=== PATIENT | male | born 1935 | race Caucasian/White ===

== ENCOUNTER 2016-11-23 12:17 | Day surgery (SDC) | payer MEDICARE ==
--- NOTE | 2016-11-23 08:04 | P.GSHP ---
History of Present Illness H&P Date: 11/23/16 CHIEF COMPLAINT: Symptomatic right inguinal hernia. HISTORY OF PRESENT ILLNESS: Keith Pagan is a 81 year-old male with a complicated history of prior prostate cancer as well as esophageal cancer with resection. He has a history of feeding tube. He has recently been treated for an infection of the blood stream with IV antibiotics. His oncologist is Dr. Lake. He wears a truss for his right inguinal hernia and reports moderate pain. He has noticed increased pain and bulge in the last 3 weeks. He denies any previous inguinal surgery. He now presents for further evaluation and management. Additionally, his obtained clearance from his oncologist to proceed with surgery. PAST MEDICAL HISTORY: Please see list. PAST SURGICAL HISTORY: Please see list. MEDICATIONS: Please see list. ALLERGIES: Please see list. SOCIAL HISTORY: No illicit drug use FAMILY HISTORY: No reports of Crohn disease or ulcerative colitis. REVIEW OF ORGAN SYSTEMS: Additionally reports: CONSTITUTIONAL: No fevers or chills. Currently on antibiotics. HEENT: Denies any trouble with hearing or nosebleeds. Has difficulty swallowing from previous radiation to the neck and surgery. Wears glasses. LYMPHATIC: Had removal of lymph nodes from the neck. ENDOCRINE: Denies any thyroid disorders. Denies any blood sugar glucose intolerance. RESPIRATORY: Denies pneumonia. Denies any troubles with breathing or dyspnea on exertion. CARDIOVASCULAR: Denies any chest pain, palpitations, or recent heart attacks. GASTROINTESTINAL: Denies fatty food intolerance. Denies change in bowel habits and gas bloat. Has a feeding tube. GENITOURINARY: Denies any blood in urine or increased urinary frequency. MUSCULOSKELETAL: Has back pain, stiffness, joint arthritis. NEUROLOGIC: Denies any numbness or tingling along the distal extremities. No seizure disorders or headaches. Has chronic pain. PSYCHIATRIC: Denies any depression or suicidal ideation. HEMATOLOGIC: Denies any abnormal bleeding or bruising. BREASTS: Denies any breast lumps, pain or nipple discharge. PHYSICAL EXAM: VITAL SIGNS: Stable Abdomen: Right inguinal defect of approximately 2 cm reducible inguinal hernia. Soft. Non-tender. Nondistended. Has a feeding tube. GENERAL: Well developed and in no acute distress. Pleasant. HEENT: No sclera icterus. Extraocular movements grossly intact. Moist buccal mucosa. Head is atraumatic, normocephalic. Hears conversational speech. No nasal drainage. NECK: Supple without lymphadenopathy. Has well healed scar along the left neck with radiation changes. CHEST: Non-labored respirations and equal bilateral excursions. CARDIOVASCULAR: Regular rate and rhythm. Palpable 2+ radial pulses. MUSCULOSKELETAL: No clubbing, cyanosis or edema. NEUROLOGIC: No focal or lateralizing signs. PSYCH: Appropriate affect. Alert and oriented to person, place and time. ASSESSMENT: 1. Symptomatic right inguinal hernia. 2. History of esophageal cancer. 3. History of blood born infection. 4. Prior history of prostate cancer. PLAN: 1. He had an evaluation with his oncologist prior to proceeding with surgery. 2. He had completed his chemotherapy several months ago. 3. Laparoscopic right inguinal hernia repair with possible bilateral and open technique was reviewed. 4. Placement of mesh placement was also reviewed. 5. DVT prophylaxis. 6. Antibiotic prophylaxis. Past Medical History Past Medical History: Cancer, Hyperlipidemia Additional Past Medical History / Comment(s): 11/21/16: STATES HIS CANCER IS IN REMISSION. HAD AN INFECTION IN SEPTEMBER AT THE BASE OF WHERE THE ORIGINAL CANCER SURGERY WAS AND WAS TREATED WITH IV ANTIBIOTICS. HAS A PORT. ALSO HAS A GASTROTOMY TUBE. HAS A BARIUM SWALLOW SCHEDULED FOR 11/27/15, HAS BEEN EATING ONLY APPLE SAUCE AND CEREAL. HX: Throat CA diagnosed in 2012. In June 2016 at [facility] with 3 lymph nodes found positive for cancer status post chemotherapy with 5-fluorouracil and carboplatin and 35 sessions of radiation. Prostate cancer status post resection in 2001 followed by radiation treatment in 2003 History of Any Multi-Drug Resistant Organisms: None Reported Past Surgical History: Orthopedic Surgery, Prostate Surgery, Tonsillectomy Additional Past Surgical History / Comment(s): 09/2016 GASTROTOMY FEEDING TUBE. JUNE 2013:Robotic-assisted resection of neck tumor mass in [place], [place] followed by section of 20 lymph nodes. June 2016 at [facility] with 3 lymph nodes, prostatectomy, left knee arthroscopic surgery. LEFT KNEE ARTHO. Past Anesthesia/Blood Transfusion Reactions: No Reported Reaction Past Psychological History: No Psychological Hx Reported Smoking Status: Smoker, current status unknown Past Alcohol Use History: None Reported Additional Past Alcohol Use History / Comment(s): Patient is a lifelong nonsmoker. He denies any medical marijuana, marijuana, street drug or alcohol use. He lives at home with his . 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 Past Drug Use History: None Reported - Past Family History Father Family Medical History: Congestive Heart Failure (CHF) Mother Family Medical History: Cancer Additional Family Medical History / Comment(s): cervical CA Brother(s) Additional Family Medical History / Comment(s): Leukemia Medications and Allergies Home Medications Medication Instructions Recorded Confirmed Type Fluconazole Oral Susp [Diflucan 200 mg PO DAILY PRN 09/29/16 11/21/16 History Oral Susp] HYDROcodone/APAP 7.5-325MG [[place] 1 tab PO Q6H PRN 11/21/16 11/21/16 History 7.5-325] Allergies Allergy/AdvReac Type Severity Reaction Status Date / Time No Known Allergies Allergy Verified 11/21/16 16:14
[~2016-11-23 12:17] MED LIST: ACETAMINOPHEN IV (For NPO) 1,000 MG in EMPTY BAG 1 BAG IVPB ONE; BUPIVACAINE LIPOSOME/PF 1.3% 20 ML, BUPIVACAIN-EPI 0.5%-1:200,000 25 ML, SODIUM CHLORID... MISCELLANE ONE; HEPARIN SODIUM,PORCINE 5,000 UNIT/ML 1 ML VIAL SQ ONE; HYDROmorphone 1 MG/ML 1 ML SYRINGE IVP PRN; LACTATED RINGERS 1,000 ML IV SCH; MIDAZOLAM 2 MG/2 ML VIAL IV PRN; ONDANSETRON 4 MG/2 ML VIAL IVP ONE; ceFAZolin 2 GM in SODIUM CHLORIDE 0.9% 100 ML IVPB ONE
[2016-11-23] MEDS ORDERED: LIDOCAINE 1% 20 ML VIAL (10MG/ML) FOR IV START INTRADERMA ONE (13:44)
[2016-11-23] MEDS ORDERED: SUCCINYLCHOLINE CHLORIDE 100 MG/5 ML SYR IV ONE (16:17)
[2016-11-23] MEDS ORDERED: GLYCOPYRROLATE 0.2 MG/ML 2 ML VIAL ONE (16:17)
[2016-11-23] MEDS ORDERED: ePHEDrine 50 MG/ML 1 ML AMP ONE (16:17)
[2016-11-23] MEDS ORDERED: NEOSTIGMINE 1 MG/ML 10 ML VIAL ONE (16:17)
[2016-11-23] MEDS ORDERED: fentaNYL (PF) 50 MCG/ML 2 ML AMP ONE (16:17)
[2016-11-23] MEDS ORDERED: ROCURONIUM BROMIDE 10 MG/ML 10 ML VIAL IV ONE (16:17)
[2016-11-23] MEDS ORDERED: MIDAZOLAM 2 MG/2 ML VIAL ONE (16:17)
[2016-11-23] MEDS ORDERED: LIDOCAINE 1% INJ 10MG/ML (20 ML MDV) ONE (16:17)
[2016-11-23] MEDS ORDERED: PROPOFOL 10 MG/ML 20 ML VIAL IV ONE (16:17)
[2016-11-23] MEDS ORDERED: PHENYLEPHRINE-0.9% NACL SYG 1 MG/10 ML SYRINGE ONE (16:17)
--- NOTE | 2016-11-23 18:28 | P.PCN ---
Date of Procedure: 11/23/16 Preoperative Diagnosis: Right inguinal hernia, history of prostatectomy Postoperative Diagnosis: Indirect initial right inguinal hernia, Nyhus type III, urethral stricture, history of prostatectomy Procedure(s) Performed: Laparoscopic right inguinal hernia with mesh, placement of 12-Tristanian Lima catheter Anesthesia: ANDREW, local Surgeon: Maryuri Goldberg Estimated Blood Loss (ml): 20 Pathology: other (Right inguinal hernia sac) Condition: stable Disposition: observation Operative Findings: Urethral stricture with history of prostatectomy required placement of 12- Tristanian Lima catheter; large right inguinal hernia 4 cm, initial, indirect without obstruction; confirmed postoperative complete reduction of swelling of the right groin
[2016-11-23] MEDS ORDERED: ONDANSETRON 4 MG/2 ML VIAL IVP PRN (18:29)
[2016-11-23] MEDS ORDERED: LACTATED RINGERS 1,000 ML IV ONE (18:29)
[2016-11-23] MEDS ORDERED: HYDROmorphone 1 MG/ML 1 ML SYRINGE IVP PRN (18:29)
[2016-11-23] MEDS ORDERED: ACETAMINOPHEN IV (For NPO) 1,000 MG in EMPTY BAG 1 BAG IVPB ONE (18:47)
[2016-11-23] MEDS ORDERED: NALOXONE 0.4 MG/ML 1 ML VIAL IV PRN (18:47)
[2016-11-23] MEDS ORDERED: HYDROcodone/APAP 15 ML SOLUTION PO PRN (19:47)
[2016-11-24 01:32] VITALS: BMI 24.4
[2016-11-24] MEDS: ceFAZolin 2 GM in SODIUM CHLORIDE 0.9% 100 ML IVPB SCH ×2 (01:36→09:16)
[2016-11-24] MEDS ORDERED: PANTOPRAZOLE 40 MG/10 ML VIAL IV SCH (09:00)
--- NOTE | 2016-11-24 09:14 | FL ---
EXAMINATION: Cervical and Thoracic Esophagram DATE OF EXAM: 11/24/2016 CLINICAL INDICATION: 81-year-old male with dysphasia, reported history of esophagectomy. 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 COMPARISON: 10/02/2016 Total Fluoroscopy Time: 1.06 minutes Contrast utilized: 50 mL Omnipaque 350. FINDINGS: Omnipaque 350 was utilized given the patient's history of surgery and the patient's reported NPO stat us as well as results from previous modified swallow study. Patient swallows without difficulty but there is deep penetration with coating of the vocal cords and eventual silent aspiration. Anterior plate spondylosis at C4-C5 prominently impressing on the posterior hypopharynx. Moderate tertiary peristaltic contractions are present with a small hiatal hernia but no obstruction to passage of contrast in the esophagus. Multiple surgical clips along the left side of the neck. IMPRESSION: 1. This was performed as a limited single contrast esophagram given the patient's previous NPO status and increased risk for aspiration. 2. There is deep laryngeal penetration with coating of the vocal folds and eventual silent aspiration . The patient reports that he is scheduled for a dynamic swallow study in 3 days. 3. No obstruction to the passage of contrast. 4. Moderate tertiary peristalsis and a small hiatal hernia.
--- NOTE | 2016-11-24 09:23 | P.DS ---
Providers Date of admission: 11/23/2016 Expected date of discharge: 11/24/16 Attending physician: Maryuri Goldberg Primary care physician: Benny Copeland - Discharge Diagnosis(es) (1) Inguinal hernia of right side with obstruction Current Visit: Yes Status: Acute (2) Esophageal cancer Current Visit: Yes Status: Chronic (3) Prostate cancer Current Visit: Yes Status: Chronic (4) H/O prostatectomy Current Visit: Yes Status: Chronic (5) H/O esophagectomy Current Visit: Yes Status: Chronic (6) Urethral stricture Current Visit: Yes Status: Chronic (7) Gastrostomy status Current Visit: Yes Status: Chronic (8) Difficult airway Current Visit: Yes Status: Acute (9) S/P inguinal hernia repair using synthetic patch Current Visit: Yes Status: Acute Hospital Course: The patient comes in with history of multiple comorbidities including prior history of oropharyngeal cancer status post esophageal resection as well as prior history of prostatectomy and present gastrostomy status. Preoperatively, his assessment confirmed difficult airway intubation. Intraoperatively, a Lima catheter could not be initially passed. A smaller catheter Lima was subsequently placed after discussion with the urologist. With his multiple comorbidities including ofelia-operative concerns, he was admitted for overnight observation. With his baseline history of dysphagia, a swallow study was performed. Prior to discharge, he was tolerating his tube feeds. He was able to void. His pain was well-controlled. Pertinent Studies: Barium swallow performed demonstrating no leaks. Procedures: Laparoscopic right inguinal hernia repair with mesh Physician placement of 12-Yakut Lima catheter for urethral stricture. Patient Condition at Discharge: Stable Plan - Discharge Summary New Discharge Prescriptions: HYDROcodone/APAP [[place] Elixir 7.5-325Mg/15Ml] 15 ml PO Q6H PRN #480 solution PRN Reason: Pain Discharge Medication List Fluconazole Oral Susp [Diflucan Oral Susp] 200 mg PO DAILY PRN 09/29/16 [History ] HYDROcodone/APAP [[place] Elixir 7.5-325Mg/15Ml] 15 ml PO Q6H PRN #480 solution [Rx] Follow up Appointment(s)/Referral(s): Maryuri Goldberg MD [STAFF PHYSICIAN] - 11/27/16 3:45 pm Patient Instructions/Handouts: Laparoscopic Herniorrhaphy (DC), Inguinal Hernia (DC) Activity/Diet/Wound Care/Special Instructions: No lifting over 4 pounds in 4 weeks. May shower. No bath tub soaks. Discharge Disposition: HOME SELF-CARE
[2016-11-24 09:30] VITALS: BP 103/66; PULSE 88; RESP 15; TEMP 97.8
--- NOTE | 2016-12-09 22:22 | P.OP ---
Date of Procedure: 11/23/16 Description of Procedure: DATE OF SERVICE: 11/23/2016 SURGEON: JASMIN FITZPATRICK MD [facility] DEPART[facility] END FINDER: NONE. PREOPERATIVE DIAGNOSIS: 1. Symptomatic initial right inguinal hernia. 2. History of oropharyngeal cancer. 3. Status post esophagectomy. 4. Status post lymph node dissection left neck. 5. History of chemo radiation into the left neck. 6. History of open prostatectomy. 7. Previous history of prostate cancer. 8. The right groin swelling. 9. Gastrostomy status. 10. History of dysphagia POSTOPERATIVE DIAGNOSES: 1. Symptomatic initial right inguinal hernia. 2. History of oropharyngeal cancer. 3. Status post esophagectomy. 4. Status post lymph node dissection left neck. 5. History of chemo radiation into the left neck. 6. History of open prostatectomy. 7. Previous history of prostate cancer. 8. The right groin swelling. 9. Gastrostomy status. 10. History of dysphagia. 11. Indirect initial right inguinal hernia, Nyhus type III, 4 cm. 12. Urethral stricture. 13. Difficult intubation. OPERATION: 1. Laparoscopic repair of right inguinal hernia via transabdominal approach with 11.4 [address] mesh. 2. Placement of 12-Beninese Ruvalcaba catheter ANESTHESIA: General with 85 mL Exparel, normal saline, Sensorcaine with epinephrine mixture ESTIMATED BLOOD LOSS: 20 mL. SPECIMENS: Hernia sac. COMPLICATIONS: None. 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 He had required lymph node dissection along the left neck as well as chemo radiation. He has also undergone an open prostatectomy. He reports in the last 3+ weeks that he developed new onset swelling and bulge and pain of the right groin. Clinical exam was consistent with incarcerated right inguinal hernia. He had obtained medical risk assessment and clearance by his oncologist. Benefits and risks including bleeding, infection, injury to the spermatic cord structures, infertility, chronic groin pain were reviewed as well as placement of mesh. Informed consent was obtained. DESCRIPTION: Patient was brought to the operating room, laid in supine position. After general induction, using a GlideScope per anesthesia, a Ruvalcaba catheter was placed after prepping the groin including abdomen in a standard sterile fashion. Ioban draping was also placed to minimize any risk of contamination of skin everardo to the mesh. Please note prior to his procedure attempted placement of Ruvalcaba catheter was unsuccessful as he had a stricture along the base of the urethra. Attempt using a 16 Beninese as well as an 18 Beninese Ruvalcaba was unsuccessful. A Coude catheter was also attempted and also unsuccessful, as urine was found emanating from the urethral opening. Placement of his ruvalcaba catheter was deferred to proceed with the procedure. As he has gastrostomy tube of the left upper abdomen, a 0 degrees 5 mm trocar entry was performed along the right upper abdomen. The abdomen was entered and insufflated to 15 mmHg pressure, using high flow CO2 which he tolerated well. Diagnostic laparoscopy confirmed a dilated stomach. After discussion with anesthesia, his feeding tube was placed to suction and his stomach was decompressed. Of the lower pelvis, a large 4 cm right indirect inguinal hernia was identified. The left side was unremarkable. The bladder was found to be slightly distended. Next, a 5 mm trocar was placed along the right lower abdomen followed by a 10 mm trocar placed along the right upper abdominal wall. Initial attention was brought to reduce the hernia which was found well into the scrotum. Using atraumatic graspers, the inguinal hernia sac was inverted into the peritoneal cavity. Next to provide additional exposure, another 5 mm trocar was placed at the epigastrium for the camera port. The patient was placed in Trendelenburg position with the right side up. Using electro- Bovie cautery, the peritoneum was scored along the edges of the inguinal hernia defect. Care was taken to avoid any injury to the neurovascular structures. Next, the hernia sac was dissected free of the spermatic cord structures using blunt dissection as well as using a Kitner. The hernia sac was released from the spermatic cord structures and passed off for further pathological analysis. The final defect corresponded to 4 cm. Next along the peritoneal edges, Endo Stitch using a 2-0 Surgidac and Lapra-Ty was used to create a pursestring suture hence closing the entire defect. An 11.[address] mesh by Bard 11.4 cm was cut in half and entered into abdominal cavity. The mesh was placed to overlap and secure the closure of the pursestring closure as an onlay. Along the periphery of the mesh, Sorbafix tackers were carefully placed avoiding any injury to neurovascular bundles. Hemostasis was excellent. All pneumoperitoneum and instruments were removed from the abdominal cavity. Next an inguinal block was placed using Exparel mixture was placed. The incisions were reapproximated using 4-0 Monocryl in an interrupted subcuticular fashion. Dermabond was applied to the skin. This completed this portion of the case. Attention was now brought back to placement of Ruvalcaba catheter as he did have a distended bladder. Intraoperative phone call to the urologist production department supervisor, Dr. Gaxiola was performed. Upon discussion with him a 12 Beninese Ruvalcaba catheter was successfully placed by me whereby clear urine was obtained. A Ruvalcaba catheter was placed given his underlying urethral stricture from his previous prostatectomy. The patient was awoken and taken to the postanesthesia care unit in stable condition. Intraoperative findings were discussed at length to the patient's family whereby he was both a difficult intubation as well as had a urethral stricture. For concerns of urinary retention including difficult Ruvalcaba catheter placement, the patient was advised to be observed overnight. FINDINGS: 1. Nyhus type III initial right indirect inguinal hernia 4 cm. 2. With history of prostatectomy, urethral stricture identified with physician services used to place 12 Beninese Ruvalcaba catheter. 3. Large right inguinal hernia 4 cm, initial, indirect without obstruction. 4. Confirmed postoperative complete reduction of swelling of the right groin
== END 2016-11-24 12:03 | disposition home or self-care (01) ==
LOC: OR 12:17 → 3SUR 18:35 → OR 11-24 12:03
PROVIDERS: ATTEND Surgery Plastic and Reconstructive Surgery
DX: K40.90 Unilateral inguinal hernia, without obstruction or gangrene, not specified as recurrent (principal); N35.9 Urethral stricture, unspecified; R47.02 Dysphasia; R19.2 Visible peristalsis; K44.9 Diaphragmatic hernia without obstruction or gangrene; Z85.818 Personal history of malignant neoplasm of other sites of lip, oral cavity, and pharynx; Z85.46 Personal history of malignant neoplasm of prostate; Z90.79 Acquired absence of other genital organ(s); Z90.49 Acquired absence of other specified parts of digestive tract; Z93.1 Gastrostomy status; Z92.21 Personal history of antineoplastic chemotherapy; Z92.3 Personal history of irradiation; E78.5 Hyperlipidemia, unspecified; T88.4XXA Failed or difficult intubation, initial encounter; Z86.19 Personal history of other infectious and parasitic diseases; Z79.891 Long term (current) use of opiate analgesic; Z79.899 Other long term (current) drug therapy
CPT/HCPCS: 88302; 74220; 49505; 51702; C1781 ×2; J2250; J1644; J2710; Q9967; J0690 ×2; J2405; J2001; J3010; J0131; J2370; J0330; J2704

== ENCOUNTER → 2016-11-27 | Outpatient (CLI) | payer MEDICARE ==
--- NOTE | 2016-11-27 12:03 | FL ---
EXAMINATION TYPE: FL barium swallow w video DATE OF EXAM: 11/27/2016 11:58 AM COMPARISON: NONE HISTORY: Post surgery TECHNIQUE: Fluoroscopy. FINDINGS: Fluoroscopic guidance was provided for the procedure performed in conjunction with the [facility] pathology department. Please see complete report forthcoming from the Speech Pathology departmen t. Various consistencies from thin liquid to solids were administered. Aspiration was present with thin liquids. There was penetration with mild aspiration possible with th e nectar thick liquids. Swallowing was worse with chin tuck method. Postsurgical changes are within the neck. The epiglottis is not visualized. Pooling within the vallec anil with mild. IMPRESSION: 1. Aspiration with thin liquids. Some penetration may be present with nectar thick liquids. Additiona l consistencies were normal.
== END | disposition home or self-care (01) ==
LOC: RADFLMAIN 11:06
PROVIDERS: ATTEND Family Medicine
DX: C02.9 Malignant neoplasm of tongue, unspecified (principal); R13.10 Dysphagia, unspecified
CPT/HCPCS: 74230

== ENCOUNTER 2017-04-04 14:43 | Inpatient (IN) | payer MEDICARE ==
--- NOTE | 2017-04-04 15:37 | ED ---
Fever HPI - General Chief Complaint: Fever Stated Complaint: Fever 102.5 Time Seen by Provider: 04/04/17 15:20 Source: patient, family, RN notes reviewed Mode of arrival: ambulatory Limitations: no limitations - History of Present Illness Initial Comments: This is a 81-year-old male with a history of throat cancer status post resection status post chemotherapy and radiation therapy with the last treatment about 7 months ago who presents the onset of complaints of fevers chills this morning he had a temperature of 102.5. This feels somewhat weak he did call his doctor and was referred to the emergency department for evaluation she denies any cough or phlegm production nausea vomiting or diarrhea. He does have residual edema about his left face left over from his surgery he states underneath his jaw he does has a fullness is somewhat firm. He feels like he's had dry mouth he did state his salivary gland was removed and the left side. MD Complaint: fever - Related Data Home Medications Medication Instructions Recorded Confirmed Cholecalciferol [Vitamin D3] 1,000 unit PO DAILY 04/04/17 04/04/17 Multivitamins, Thera [Multivitamin 1 tab PO DAILY 04/04/17 04/04/17 (formulary)] Phenylephrine HCl [Calvin-Synephrine] 1 spray EA NOSTRIL DAILY 04/04/17 04/04/17 Allergies Allergy/AdvReac Type Severity Reaction Status Date / Time No Known Allergies Allergy Verified 04/04/17 15:14 Review of Systems ROS Statement: Those systems with pertinent positive or pertinent negative responses have been documented in the HPI. ROS Other: All systems not noted in ROS Statement are negative. Past Medical History Past Medical History: Cancer, Hyperlipidemia Additional Past Medical History / Comment(s): prostate cancer(had surgery and radiation). throat cancer History of Any Multi-Drug Resistant Organisms: None Reported Past Surgical History: Orthopedic Surgery, Prostate Surgery, Tonsillectomy Additional Past Surgical History / Comment(s): left knee orthoscopic surgery. surgery on throat. 20 lymph nodes removed. chemo and radiation in may 2016 for 7 weeks Past Anesthesia/Blood Transfusion Reactions: No Reported Reaction Past Psychological History: No Psychological Hx Reported Smoking Status: Never smoker Past Alcohol Use History: None Reported Additional Past Alcohol Use History / Comment(s): Patient is a lifelong nonsmoker. He denies any medical marijuana, marijuana, street drug or alcohol use. He lives at home with his . 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 Past Drug Use History: None Reported - Past Family History Father Family Medical History: Congestive Heart Failure (CHF) Mother Family Medical History: Cancer Additional Family Medical History / Comment(s): cervical cancer Brother(s) Additional Family Medical History / Comment(s): Leukemia General Exam - General Exam Comments Initial Comments: This is a well-developed well-nourished awake alert oriented 3 male Limitations: no limitations General appearance: alert, in no apparent distress Head exam: Present: atraumatic, normocephalic Eye exam: Present: normal appearance, PERRL, EOMI ENT exam: Present: mucous membranes dry, other (Evaluation of the submandibular region reveals a fullness describe the patient nontender to palpation also some fullness along the posterior and inferior aspects of the left mandible. No fluctuance no increased local temperature. Is erythema seen around theThe patient's neck and upper chest.) Neck exam: Present: normal inspection. Absent: tenderness, meningismus, lymphadenopathy Respiratory exam: Present: normal lung sounds bilaterally. Absent: respiratory distress, wheezes, rales, rhonchi, stridor Cardiovascular Exam: Present: normal rhythm, tachycardia GI/Abdominal exam: Present: soft, normal bowel sounds. Absent: distended, tenderness, guarding, rebound, rigid Extremities exam: Present: normal inspection, full ROM, normal capillary refill. Absent: tenderness, pedal edema, joint swelling, calf tenderness Back exam: Present: normal inspection Neurological exam: Present: alert, oriented X3, CN II-XII intact Psychiatric exam: Present: normal affect, normal mood Skin exam: Present: warm, dry, intact, normal color. Absent: rash Course Vital Signs 04/04/17 04/04/17 04/04/17 14:47 15:18 16:42 Temperature 103.0 F H 103.0 F H Pulse Rate 106 H 97 99 Respiratory 20 16 18 Rate Blood Pressure 113/68 145/69 131/67 O2 Sat by Pulse 98 97 95 Oximetry 04/04/17 18:17 Temperature 100.1 F H Pulse Rate 95 Respiratory 18 Rate Blood Pressure 94/55 O2 Sat by Pulse 96 Oximetry Medical Decision Making - Medical Decision Making I did discuss findings with patient and with the admitting physician the patient will be admitted for evaluation of fever of unknown origin. - Lab Data Result diagrams: 04/04/17 15:05 04/04/17 15:05 Lab Results 04/04/17 04/04/17 04/04/17 Range/Units 15:05 15:05 15:05 WBC 7.8 (3.8-10.6) k/uL RBC 3.91 L (4.30-5.90) m/uL Hgb 12.9 L (13.0-17.5) gm/dL Hct 37.0 L (39.0-53.0) % MCV 94.6 (80.0-100.0) fL MCH 32.9 (25.0-35.0) pg MCHC 34.8 (31.0-37.0) g/dL RDW 12.8 (11.5-15.5) % Plt Count 185 (150-450) k/uL Neutrophils % 87 % Lymphocytes % 7 % Monocytes % 4 % Eosinophils % 1 % Basophils % 0 % Neutrophils # 6.7 (1.3-7.7) k/uL Lymphocytes # 0.6 L (1.0-4.8) k/uL Monocytes # 0.3 (0-1.0) k/uL Eosinophils # 0.1 (0-0.7) k/uL Basophils # 0.0 (0-0.2) k/uL Sodium 138 (137-145) mmol/L Potassium 4.1 (3.5-5.1) mmol/L Chloride 101 (98-107) mmol/L Carbon Dioxide 26 (22-30) mmol/L Anion Gap 11 mmol/L BUN 21 H (9-20) mg/dL Creatinine 0.73 (0.66-1.25) mg/dL Est GFR (MDRD) Af Amer >60 (>60 ml/min/1.73 sqM) Est GFR (MDRD) Non-Af >60 (>60 ml/min/1.73 sqM) Glucose 108 H (74-99) mg/dL Plasma Lactic Acid Har[place] 1.7 (0.7-2.0) mmol/L Calcium 9.6 (8.4-10.2) mg/dL Magnesium 1.6 (1.6-2.3) mg/dL Total Bilirubin 0.7 (0.2-1.3) mg/dL AST 25 (17-59) U/L ALT 22 (21-72) U/L Alkaline Phosphatase 49 (38-126) U/L Total Protein 8.0 (6.3-8.2) g/dL Albumin 4.5 (3.5-5.0) g/dL Urine Color Urine Appearance (Clear) Urine pH (5.0-8.0) Ur Specific [place] (1.001-1.035) Urine Protein (Negative) Urine Glucose (UA) (Negative) Urine Ketones (Negative) Urine Blood (Negative) Urine Nitrite (Negative) Urine Bilirubin (Negative) Urine Urobilinogen (<2.0) mg/dL Ur Leukocyte Esterase (Negative) Influenza Type A RNA (Not Detectd) Influenza Type B (PCR) (Not Detectd) 04/04/17 04/04/17 Range/Units 16:40 17:03 WBC (3.8-10.6) k/uL RBC (4.30-5.90) m/uL Hgb (13.0-17.5) gm/dL Hct (39.0-53.0) % MCV (80.0-100.0) fL MCH (25.0-35.0) pg MCHC (31.0-37.0) g/dL RDW (11.5-15.5) % Plt Count (150-450) k/uL Neutrophils % % Lymphocytes % % Monocytes % % Eosinophils % % Basophils % % Neutrophils # (1.3-7.7) k/uL Lymphocytes # (1.0-4.8) k/uL Monocytes # (0-1.0) k/uL Eosinophils # (0-0.7) k/uL Basophils # (0-0.2) k/uL Sodium (137-145) mmol/L Potassium (3.5-5.1) mmol/L Chloride (98-107) mmol/L Carbon Dioxide (22-30) mmol/L Anion Gap mmol/L BUN (9-20) mg/dL Creatinine (0.66-1.25) mg/dL Est GFR (MDRD) Af Amer (>60 ml/min/1.73 sqM) Est GFR (MDRD) Non-Af (>60 ml/min/1.73 sqM) Glucose (74-99) mg/dL Plasma Lactic Acid Haroon (0.7-2.0) mmol/L Calcium (8.4-10.2) mg/dL Magnesium (1.6-2.3) mg/dL Total Bilirubin (0.2-1.3) mg/dL AST (17-59) U/L ALT (21-72) U/L Alkaline Phosphatase (38-126) U/L Total Protein (6.3-8.2) g/dL Albumin (3.5-5.0) g/dL Urine Color Yellow Urine Appearance Clear (Clear) Urine pH 8.0 (5.0-8.0) Ur Specific [place] 1.017 (1.001-1.035) Urine Protein Negative (Negative) Urine Glucose (UA) Negative (Negative) Urine Ketones Negative (Negative) Urine Blood Negative (Negative) Urine Nitrite Negative (Negative) Urine Bilirubin Negative (Negative) Urine Urobilinogen <2.0 (<2.0) mg/dL Ur Leukocyte Esterase Negative (Negative) Influenza Type A RNA Not Detected (Not Detectd) Influenza Type B (PCR) Not Detected (Not Detectd) - Radiology Data Radiology results: report reviewed (I did review the imaging and reports no acute findings.), image reviewed Disposition Clinical Impression: Fever of unknown origin (FUO), History of throat cancer Disposition: ADMITTED IP TO THIS HOSP Condition: Stable Referrals: Benny Copeland MD [Primary Care Provider] - 1-2 days
[2017-04-04 15:54] LABS: Basophils % (A) 0 %; CH 32.6; CHCM 34.6; Eosinophils # (A) 0.1 k/uL (0-0.7); Eosinophils % (A) 1 %; HDW 2.48; HGB 12.9 gm/dL (13.0-17.5); Luc # (Auto) 0.09; Luc % (Auto) 1; Lymphocytes # (A) 0.6 k/uL (1.0-4.8); Lymphocytes % (A) 7 %; MCH 32.9 pg (25.0-35.0); MCHC 34.8 g/dL (31.0-37.0); MCV 94.6 fL (80.0-100.0); Mean Platelet Volume 6.7; Monocytes # (A) 0.3 k/uL (0-1.0); Monocytes % (A) 4 %; Neutrophils # (A) 6.7 k/uL (1.3-7.7); Neutrophils % (A) 87 %; RBC 3.91 m/uL (4.30-5.90); RDW 12.8 % (11.5-15.5); WBC 7.8 k/uL (3.8-10.6); WBC (Perox) 8.07
[2017-04-04 16:03] LABS: ALT 22 U/L (21-72); AST 25 U/L (17-59); Alkaline Phosphatase 49 U/L (38-126); Anion Gap 11 mmol/L; Blood Urea Nitrogen 21 mg/dL (9-20); Calcium 9.6 mg/dL (8.4-10.2); Carbon Dioxide 26 mmol/L (22-30); Chloride 101 mmol/L (98-107); Glucose 108 mg/dL (74-99); Magnesium 1.6 mg/dL (1.6-2.3); Non-African American GFR(MDRD) >60 (>60 ml/min/1.73 sqM); Potassium 4.1 mmol/L (3.5-5.1); Sodium 138 mmol/L (137-145); Total Bilirubin 0.7 mg/dL (0.2-1.3)
--- NOTE | 2017-04-04 16:13 | XR ---
EXAMINATION TYPE: XR chest 2V DATE OF EXAM: 04/04/2017 4:08 PM COMPARISON: 09/29/2016 HISTORY: Shortness of breath TECHNIQUE: Frontal and lateral views of the chest are obtained. FINDINGS: Scattered senescent parenchymal changes noted. Hyperinflation compatible with COPD. No evidence for infiltrate. No evidence for atelectasis. Heart size is stable. Mediastinal structures are stable and grossly unremarkable. No evidence for hilar prominence. Degenerative changes dorsal spine. IMPRESSION: 1. No evidence for acute pulmonary disease.
[2017-04-04] MEDS ORDERED: ACETAMINOPHEN TAB 500 MG TAB PO STA (16:15)
[2017-04-04] MEDS ORDERED: IBUPROFEN 800 MG TAB PO STA (16:15)
[2017-04-04 17:13] LABS: Appearance,Urine Clear (Clear); Bilirubin,Urine Negative (Negative); Glucose,Urine (UA) Negative (Negative); Ketones,Urine Negative (Negative); Leukocyte Esterase,Urine Negative (Negative); Nitrite,Urine Negative (Negative); Protein,Urine Negative (Negative); Specific Gravity,Urine 1.017 (1.001-1.035); UA Billing (MACRO vs. MICRO) CHEM; Urobilinogen,Urine <2.0 mg/dL (<2.0)
[2017-04-04] MEDS ORDERED: ACETAMINOPHEN TAB 325 MG TAB PO PRN (18:40)
[2017-04-04] MEDS ORDERED: NALOXONE 0.4 MG/ML 1 ML VIAL IV PRN (18:40)
[2017-04-04] MEDS ORDERED: PIPERACILLIN-TAZOBACTAM 3.375 GM in DEXTROSE/WATER 1 50ML.BAG IVPB STA (18:42)
[2017-04-04] MEDS: SODIUM CHLORIDE 0.9% 1,000 ML IV SCH (19:07)
[2017-04-04] MEDS: ENOXAPARIN 40 MG/0.4 ML SYRINGE SQ SCH (22:25)
[2017-04-05] MEDS: SODIUM CHLORIDE 0.9% 1,000 ML IV SCH ×3 (04:41→23:23)
[2017-04-05] MEDS: ENOXAPARIN 40 MG/0.4 ML SYRINGE SQ SCH (07:40)
[2017-04-05] MEDS: CHOLECALCIFEROL 1,000 UNIT TAB PO SCH (07:40)
[2017-04-05 07:45] VITALS: RESP 16
[2017-04-05 08:23] LABS: Basophils % (A) 0 %; CH 32.5; CHCM 33.1; Eosinophils # (A) 0.1 k/uL (0-0.7); Eosinophils % (A) 1 %; HCT 33.1 % (39.0-53.0); HDW 2.32; HGB 10.7 gm/dL (13.0-17.5); Luc # (Auto) 0.12; Luc % (Auto) 3; Lymphocytes # (A) 0.4 k/uL (1.0-4.8); Lymphocytes % (A) 10 %; MCH 31.7 pg (25.0-35.0); MCHC 32.2 g/dL (31.0-37.0); MCV 98.5 fL (80.0-100.0); Mean Platelet Volume 6.9; Monocytes # (A) 0.3 k/uL (0-1.0); Monocytes % (A) 7 %; Neutrophils # (A) 3.1 k/uL (1.3-7.7); Neutrophils % (A) 78 %; RBC 3.36 m/uL (4.30-5.90); RDW 13.2 % (11.5-15.5)
--- NOTE | 2017-04-05 08:30 | HP ---
DATE OF ADMISSION: 04/04/2017 PRESENTING COMPLAINT: Fever. HISTORY OF PRESENTING COMPLAINT: This is a very pleasant 81-year-old patient who I last saw in September 2016. Follows with Dr. Copeland. 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 Patient has surgical resection. The patient did follow up at [facility]. The patient also did get chemotherapy. The patient, subsequently because of poor oral intake, did have a PEG tube placed. Subsequently the patient is doing. Went down to [place], started drinking Ensure, increased oral intake and finally got his PEG tube taken out. Patient did have a barium swallow about 6 weeks ago in [place] which did show some aspiration. Patient now presents with 24 hours of fever. Has a slight cough, which is chronic. Denies any urinary symptoms. No diarrhea. No skin changes. Fever is up to 103. The patient was empirically started on antibiotics in the ER in the form of Zosyn. REVIEW OF SYSTEMS: CONSTITUTIONAL: Febrile, tired. HEENT: Some difficulty in swallowing still persists. RESPIRATORY: Chronic cough. CARDIOVASCULAR: None. GASTROINTESTINAL: None. GENITOURINARY: None. MUSCULOSKELETAL: None. DERMATOLOGIC: None. HEMATOLOGIC: None. LYMPHATIC: None. PSYCHIATRY: None. NEUROLOGICAL: None. PAST MEDICAL HISTORY: Base of the tongue cancer, hyperlipidemia, aspiration. PAST SURGICAL HISTORY: Prostate surgery, oral caries surgery, prostatectomy. SOCIAL HISTORY: No smoking or alcohol. . The patient was a teacher. FAMILY HISTORY: Cervical cancer, congestive heart failure. HOME MEDICATIONS: 1. Calvin-Synephrine one spray each nostril daily. 2. Multivitamin 1 tablet p.o. daily. 3. Vitamin D, 3000 units p.o. daily. ALLERGIES: None. On examination, T-max 103.3, pulse 106, respirations 20, blood pressure 103/68, pulse ox 98% on room air. GENERAL APPEARANCE: Sitting on bed, not in distress. HEENT: Conjunctivae normal. HEENT: The patient has got a scar in the neck and some firmness in the chin area. Minimal tenderness. RESPIRATORY: Effort normal. LUNGS: Clear. CARDIOVASCULAR: First and second sounds normal. No edema. ABDOMEN: Soft. Liver and spleen not palpable. LYMPHATIC: No lymph node palpable neck or axillae. PSYCHIATRY: Alert and oriented x3. Mood and affect normal. INVESTIGATIONS: White count 7.8, hemoglobin 12.9, potassium 4.1, BUN 21 creatinine is 0.73. Influenza is negative. Chest x-ray nil acute. ASSESSMENT: 1. High grade fever of less than 24 hours duration in a patient who has had base of tongue cancer. The patient does have chronic aspiration as evidenced by barium swallow over 6 weeks ago in [place]. The patient may be developing early chemical pneumonitis with fever. He denies any genitourinary symptoms on any diarrhea. 2. Chronic dysphagia. 3. 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 4. Hyperlipidemia. PLAN: The patient is started is empirically started on Zosyn in the ER. IV fluids are on board. We will give Lovenox. Blood cultures were done. Repeat labs in the morning. Infectious disease is being consulted. Care was discussed with the patient.
[2017-04-05 08:46] LABS: ALT 19 U/L (21-72); AST 17 U/L (17-59); Alkaline Phosphatase 42 U/L (38-126); Anion Gap 6 mmol/L; Blood Urea Nitrogen 17 mg/dL (9-20); Calcium 8.5 mg/dL (8.4-10.2); Carbon Dioxide 27 mmol/L (22-30); Chloride 106 mmol/L (98-107); Glucose 93 mg/dL (74-99); Non-African American GFR(MDRD) >60 (>60 ml/min/1.73 sqM); Potassium 3.9 mmol/L (3.5-5.1); Sodium 139 mmol/L (137-145); Total Bilirubin 0.9 mg/dL (0.2-1.3); Total Protein 6.3 g/dL (6.3-8.2)
[2017-04-05] MEDS ORDERED: RX INFO: IV CONTRAST WAS GIVEN 1 EACH MISC MISCELLANE PRN (09:07)
--- NOTE | 2017-04-05 09:38 | P.CONS ---
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 May [address] Estrada and was sent to Dr. Dale for lymph node enlargement. He underwent a PET scan followed by biopsy done by Dr. Dale and also needle biopsy was done and both resulted cancer. Patient was sent to [facility] head and neck surgery team in [place]. Twenty lymph nodes were removed and 3 were cancerous. He started chemotherapy and radiation therapy which she completed in August 2016. He was on 5-fluorouracil and carboplatin. In September 2016 he developed a swollen tender red area to the left side of his neck and he had a needle biopsy and CAT scan with contrast at [facility] showed no solid mass but fluid collection in the area. Patient was put on antibiotics and subsequently ended up at [facility] due to fevers. He was admitted to the hospital and seen by ID service at that time. During his hospitalization he did have a PEG tube placed he was on IV antibiotics and transitioned to Augmentin at the time of his discharge. Patient states he oropeza and and while there this winter he had the PEG tube and his port removed. He has been taking all nourishment orally and is currently taking boost as a supplement. He states he has gained 10 pounds but his appetite is never very good and he just forces himself to eat. 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 Patient had sudden onset of fever 102.5 at home and weakness and presented to [facility]. Chest x-ray showed no acute findings. His temperature was 103 and white count 7.8. Influenza testing was negative for A and B. He was given 1 dose of Zosyn and [facility] fever of unknown origin. Patient complains of firm mass under his chin. He states he has had occupational therapy to try to help with the lymphatic return in this area and was doing exercises but recently cut back. Review of Systems All systems: negative Constitutional: Reports anorexia, Reports chills, Reports fever, Reports poor appetite, Reports weight loss Eyes: denies blurred vision, denies pain Ears, nose, mouth and throat: Reports neck lump, Reports swelling in throat, Denies headache, Denies sore throat Cardiovascular: Denies chest pain, Denies shortness of breath Respiratory: Denies cough Gastrointestinal: Denies abdominal pain, Denies diarrhea, Denies nausea, Denies vomiting Musculoskeletal: Denies myalgias Integumentary: Denies pruritus, Denies rash Neurological: Denies numbness, Denies weakness Psychiatric: Denies anxiety, Denies depression Endocrine: Denies fatigue, Denies weight change Past Medical History Past Medical History: Cancer, Hyperlipidemia Additional Past Medical History / Comment(s): prostate cancer(had surgery and radiation). 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 surgery on throat. 20 lymph nodes removed. chemo and radiation in may 2016 for 7 weeks, PEG tube placement and removal, port placement and removal Past Anesthesia/Blood Transfusion Reactions: No Reported Reaction Past Psychological History: No Psychological Hx Reported Smoking Status: Never smoker Past Alcohol Use History: None Reported Additional Past Alcohol Use History / Comment(s): Patient is a lifelong nonsmoker. He denies any medical marijuana, marijuana, street drug or alcohol use. He lives at home with his . 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 Past Drug Use History: None Reported - Past Family History Father Family Medical History: Congestive Heart Failure (CHF) Mother Family Medical History: Cancer Additional Family Medical History / Comment(s): cervical cancer Brother(s) Additional Family Medical History / Comment(s): Leukemia Medications and Allergies Home Medications Medication Instructions Recorded Confirmed Type Cholecalciferol [Vitamin D3] 1,000 unit PO DAILY 04/04/17 04/04/17 History Multivitamins, Thera [Multivitamin 1 tab PO DAILY 04/04/17 04/04/17 History (formulary)] Phenylephrine HCl [Calvin-Synephrine] 1 spray EA NOSTRIL DAILY 04/04/17 04/04/17 History Allergies Allergy/AdvReac Type Severity Reaction Status Date / Time No Known Allergies Allergy Verified 04/04/17 15:14 Physical Exam Vitals: Vital Signs Temp Pulse Pulse Resp BP BP Pulse Ox 04/05/17 07:00 96.7 F L 77 16 117/67 97 04/04/17 23:00 98.2 F 77 18 105/52 96 04/04/17 20:30 98.3 F 75 18 98/63 96 04/04/17 19:55 98.5 F 77 18 121/57 96 04/04/17 19:08 98.4 F 80 18 95/54 95 04/04/17 18:17 100.1 F H 95 18 94/55 96 04/04/17 16:42 99 18 131/67 95 04/04/17 15:18 103.0 F H 97 16 145/69 97 04/04/17 14:47 103.0 F H 106 H 20 113/68 98 Intake and Output 04/04/17 04/05/17 04/05/17 22:59 06:59 14:59 Intake Total 250 Output Total 1300 Balance 250 -1300 Intake: Oral 250 Output: Urine 1300 Other: Voiding Method Urinal # Voids 1 1 Weight 78 kg Gen: This is a 81-year-old male. He is sitting up in bed and appears to be in no acute distress. He is currently eating his breakfast and does not show any signs of aspiration or coughing. HEENT: Head is atraumatic, normocephalic. Pupils equal, round. Sclerae is anicteric. Conjunctiva pink. Mucous members of the mouth are somewhat dry. No thrush noted. NECK: Supple. No JVD. No lymphadenopathy. No thyromegaly. Healed scar to the left side of his neck. Under his chin there is solid feeling mass with mild tenderness. No drainage or open areas. LUNGS: Clear to auscultation. No wheezes or rhonchi. No intercostal retractions. HEART: Regular rate and rhythm. No murmur. ABDOMEN: Soft. Bowel sounds are present. No masses. No tenderness. EXTREMITIES: No pedal edema. No calf tenderness. Dorsalis pedis +2 bilaterally. NEUROLOGICAL: Patient is awake, alert and oriented x3. Cranial nerves 2 through 12 are grossly intact. Results Results: Laboratory Results WBC 4.0 k/uL (3.8-10.6) 04/05/17 07:27 RBC 3.36 m/uL (4.30-5.90) L 04/05/17 07:27 Hgb 10.7 gm/dL (13.0-17.5) L 04/05/17 07:27 Hct 33.1 % (39.0-53.0) L 04/05/17 07:27 MCV 98.5 fL (80.0-100.0) 04/05/17 07: MCH 31.7 pg (25.0-35.0) 04/05/17 07: MCHC 32.2 g/dL (31.0-37.0) 04/05/17 07: RDW 13.2 % (11.5-15.5) 04/05/17 07: Plt Count 126 k/uL (150-450) L 04/05/17 07:27 Neutrophils % 78 % 04/05/17 07:27 Lymphocytes % 10 % 04/05/17 07:27 Monocytes % 7 % 04/05/17 07: Eosinophils % 1 % 04/05/17 07: Basophils % 0 % 04/05/17 07:27 Neutrophils # 3.1 k/uL (1.3-7.7) 04/05/17 07:27 Lymphocytes # 0.4 k/uL (1.0-4.8) L 04/05/17 07:27 Monocytes # 0.3 k/uL (0-1.0) 04/05/17 07:27 Eosinophils # 0.1 k/uL (0-0.7) 04/05/17 07:27 Basophils # 0.0 k/uL (0-0.2) 04/05/17 07:27 Sodium 139 mmol/L (137-145) 04/05/17 07:27 Potassium 3.9 mmol/L (3.5-5.1) 04/05/17 07:27 Chloride 106 mmol/L (98-107) 04/05/17 07:27 Carbon Dioxide 27 mmol/L (22-30) 04/05/17 07:27 Anion Gap 6 mmol/L 04/05/17 07:27 BUN 17 mg/dL (9-20) 04/05/17 07:27 Creatinine 0.66 mg/dL (0.66-1.25) 04/05/17 07:27 Est GFR (MDRD) Af Amer >60 (>60 ml/min/1.73 sqM) 04/05/17 07:27 Est GFR (MDRD) Non-Af >60 (>60 ml/min/1.73 sqM) 04/05/17 07:27 Glucose 93 mg/dL (74-99) 04/05/17 07: Plasma Lactic Acid Haroon 1.7 mmol/L (0.7-2.0) 04/04/17 15:05 Calcium 8.5 mg/dL (8.4-10.2) 04/05/17 07: Magnesium 1.6 mg/dL (1.6-2.3) 04/04/17 15:05 Total Bilirubin 0.9 mg/dL (0.2-1.3) 04/05/17 07: AST 17 U/L (17-59) 04/05/17 07: ALT 19 U/L (21-72) L 04/05/17 07: Alkaline Phosphatase 42 U/L (38-126) 04/05/17 07: Total Protein 6.3 g/dL (6.3-8.2) 04/05/17 07: Albumin 3.3 g/dL (3.5-5.0) L 04/05/17 07:27 Urine Color Yellow 04/04/17 17:03 Urine Appearance Clear (Clear) 04/04/17 17:03 Urine pH 8.0 (5.0-8.0) 04/04/17 17:03 Ur Specific [place] 1.017 (1.001-1.035) 04/04/17 17:03 Urine Protein Negative (Negative) 04/04/17 17:03 Urine Glucose (UA) Negative (Negative) 04/04/17 17:03 Urine Ketones Negative (Negative) 04/04/17 17:03 Urine Blood Negative (Negative) 04/04/17 17: Urine Nitrite Negative (Negative) 04/04/17 17:03 Urine Bilirubin Negative (Negative) 04/04/17 17:03 Urine Urobilinogen <2.0 mg/dL (<2.0) 04/04/17 17:03 Ur Leukocyte Esterase Negative (Negative) 04/04/17 17:03 Influenza Type A RNA Not Detected (Not Detectd) 04/04/17 16:40 Influenza Type B (PCR) Not Detected (Not Detectd) 04/04/17 16:40 CBC & Chem 7: 04/05/17 07:27 04/05/17 07:27 Labs: Abnormal Lab Results - Last 24 Hours (Table) 04/04/17 04/04/17 Range/Units 15:05 15:05 RBC 3.91 L (4.30-5.90) m/uL Hgb 12.9 L (13.0-17.5) gm/dL Hct 37.0 L (39.0-53.0) % Lymphocytes # 0.6 L (1.0-4.8) k/uL BUN 21 H (9-20) mg/dL Glucose 108 H (74-99) mg/dL Assessment and Plan Plan: This is a 81-year-old male with prior history of cancer at the base of the tongue with metastasis to his next status post extensive surgery and resection of lymph nodes and chemoradiation therapy. Patient presents with sudden onset of fever and weakness along with increased firm area under his chin. Patient received 1 dose of Zosyn in the emergency center and we will continue this. One blood culture was obtained and repeat blood culture will be ordered as well as a sed rate and pre-albumin. CAT scan of the soft tissue of the neck with contrast will be ordered to further evaluate this area. Await culture reports. Further recommendations as patient progresses. Continue supportive care. The above dictated assessment and findings were discussed with Dr. Villarreal. The impression and plan of care have been directed as dictated. Anay Mccarthy nurse practitioner acting as scribe for Dr. Villarreal.
[2017-04-05] MEDS: PHENYLEPHRINE 0.25% NASAL SPRA 1 SPRAY/ML NASAL SCH (10:00)
[2017-04-05] MEDS: PIPERACILLIN-TAZOBACTAM 3.375 GM in DEXTROSE/WATER 1 50ML.BAG IVPB SCH ×3 (10:01→23:23)
--- NOTE | 2017-04-05 11:40 | CT ---
EXAMINATION TYPE: CT neck chest w con DATE OF EXAM: 04/05/2017 11:23 AM COMPARISON: NONE HISTORY: Abscess CT DLP: 707.30 mGycm Automated exposure control for dose reduction was used. CONTRAST: CT scan of the neck is performed following with IV Contrast, patient injected with 100 ml mL of Omnip aque 300. Axial images are obtained, coronal and sagittal reformatted images are reviewed. FINDINGS: Airway: Nonspecific thickening of the pharyngeal soft tissues is noted. At the level of the true and false cords mucosal thickening is also suspected. Parotid/submandibular glands: No gross abnormality seen. Carotid/Vascular Structures: Atheromatous change present at the carotid bifurcations, postop change n oted in the left neck. Proximal descending aorta measures 3.9 cm. There is a three-vessel arch presen t. There is narrowing of the internal jugular vein on the left likely due to postop change. Osseous Structures: Inflammatory changes present in the maxillary sinuses. Hypertrophic change presen t in the spine, there are degenerative disc changes. Other: Increased attenuation is present within t he subcutaneous fat of the neck, correlate for edema or cellulitis. The epiglottis appears somewhat t hickened. Degenerative changes are noted within the shoulders. 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 CHEST: There is no evident lung mass. Coronary artery calcifications are present. No pleural or peric ardial effusion. No mediastinal, axillary, or hilar adenopathy. Ascending aorta is 3.8 cm. Dependent density within the gallbladder may represent gallstones. IMPRESSION: Correlate for edema or cellulitis over the neck. Postop changes as described. Proximal d escending aortic aneurysm, ascending aortic measurement as described. Follow-up suggested. Possible c holelithiasis.
[2017-04-05] MEDS: MULTIVITAMINS, THERA 1 EACH TAB PO SCH (11:53)
--- NOTE | 2017-04-05 14:35 | P.CON ---
Consult Note - . 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 May [address] Estrada and was sent to Dr. Dale for lymph node enlargement. He underwent a PET scan followed by biopsy done by Dr. Dale and also needle biopsy was done and both resulted cancer. Patient was sent to [facility] head and neck surgery team in [place]. Twenty lymph nodes were removed and 3 were cancerous. He started chemotherapy and radiation therapy which she completed in August 2016. He was on 5-fluorouracil and carboplatin. In September 2016 he developed a swollen tender red area to the left side of his neck and he had a needle biopsy and CAT scan with contrast at [facility] showed no solid mass but fluid collection in the area. Patient was put on antibiotics and subsequently ended up at [facility] due to fevers. He was admitted to the hospital and seen by ID service at that time. During his hospitalization he did have a PEG tube placed he was on IV antibiotics and transitioned to Augmentin at the time of his discharge. Patient states he oropeza and and while there this winter he had the PEG tube and his port removed. He has been taking all nourishment orally and is currently taking boost as a supplement. He states he has gained 10 pounds but his appetite is never very good and he just forces himself to eat. 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 Patient had sudden onset of fever 102.5 at home and weakness and presented to [facility]. Chest x-ray showed no acute findings. His temperature was 103 and white count 7.8. Influenza testing was negative for A and B. He was given 1 dose of Zosyn and admitted to the [facility] floor for fever of unknown origin. Patient complains of firm mass under his chin. He states he has had occupational therapy to try to help with the lymphatic return in this area and was doing exercises but recently cut back. Please see the consult note is dictated by nurse practitioner Mrs. Anay Mccarthy. At this time this pleasant gentleman has had now his fifth bout of the current cellulitis of his neck. His etiology of his high-grade fever and chill. Or she feeling better at this point in time with current antibiotic therapy of Zosyn. If his blood cultures are negative and improved in the morning may be discharged on oral Augmentin. He prefers the elixir. They'll do like to travel and will give him a course of Augmentin preemptively when they're traveling so if he starts to have symptoms he will take antibiotic therapy and try to avoid ER visits in the future. Continue with his maneuvers to improve the flow volume fluid with the lymphedema specialist advice of massaging the area. Continue and it may give him some improvement. The patient's prior surgery and radiation therapy have damaged tissue of the etiology of the recurrent bouts of cellulitis. Adequate nutrition and a multivitamin will help his immune system. I agree with the evaluation assessment and plan as dictated by MOLD PULLER Mrs. Anay Mccarthy.
--- NOTE | 2017-04-05 21:59 | PN ---
DATE OF SERVICE: 04/05/2017. PRESENTING COMPLAINT: Fever. INTERVAL HISTORY: This is a patient who presented with fever of unknown origin. He has had several bouts in the past previously of cellulitis to his neck secondary to chemoradiation treatment for cancer at the tongue base with metastases. Patient is awake and alert, currently sitting up in bed, eating his lunch. Patient states he has some difficulty swallowing, but that is because of his surgery. Otherwise patient has no other complaints. Review of systems done for constitutional, cardiovascular, GI, pulmonary, with relevant findings as above. CURRENT MEDICATIONS: 1. Lovenox 40 mg subcu daily. 2. Zosyn 3.375 grams in IV solution IV piggyback q.8h. PHYSICAL EXAMINATION: VITAL SIGNS: Temperature 96.7, pulse 77, respirations 16, blood pressure 117/67, oxygen saturation 97% on room air. GENERAL APPEARANCE: Patient is awake and alert, sitting up in his bed, eating his lunch. Family at the bedside. EYES: Pupils equal. Conjunctivae normal. NECK: JVD not raised. Mass not palpable. Respiratory effort normal. LUNGS: Clear to auscultation. CARDIOVASCULAR: First and second sounds normal. No edema. ABDOMEN: Soft, nontender. Liver and spleen not palpable. PSYCHIATRY: Alert and oriented x3. Mood and affect are normal. INVESTIGATIONS: Hemoglobin 10.7, platelet count 126. ASSESSMENT: 1. High-grade fever, likely due to cellulitis of the neck. Patient has a history of chemoradiation therapy for tongue base cancer. 2. Chronic ( ). 3. 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 4. Hyperlipidemia. PLAN: Infectious disease with consulted 100 and we are awaiting blood culture results. If those are negative according to infectious disease, it would be okay for the patient to return home with Augmentin as the antibiotic for treatment. In the meantime, patient will remain in the hospital receive continued doses of Zosyn while we await culture results. Plan of care was discussed with patient and family. Patient was seen and examined by nurse practitioner, Barbie Norton and all elements of the case discussed with attending, Dr. Velez. I performed a history and physical examination of this patient and discussed the same with the dictator. I agree with the dictator's note. Any additional findings/opinions, etc. will be noted.
[2017-04-06] MEDS: ENOXAPARIN 40 MG/0.4 ML SYRINGE SQ SCH (08:48)
[2017-04-06] MEDS: CHOLECALCIFEROL 1,000 UNIT TAB PO SCH (08:49)
[2017-04-06] MEDS: PIPERACILLIN-TAZOBACTAM 3.375 GM in DEXTROSE/WATER 1 50ML.BAG IVPB SCH ×3 (08:49→23:21)
[2017-04-06] MEDS: PHENYLEPHRINE 0.25% NASAL SPRA 1 SPRAY/ML NASAL SCH (08:51)
--- NOTE | 2017-04-06 12:12 | PN ---
DATE OF SERVICE: 04/05/2017 ATTENDING NOTE: This patient was seen and examined by me on 04/05/2017. I reviewed the note of my nurse practitioner, Ms. Norton. Discussed and agreed with the same. This is a patient who presented with fever, likely source is some cellulitis of the site of his prior tongue surgery at the base of the tongue. Since he is getting IV antibiotics, fever likely come down. Feels a bit better. Patient taking oral diet. Seen by Dr. Villarreal, infectious disease. ON EXAMINATION: Afebrile. LUNGS: Fair air entry. CARDIOVASCULAR: First and second sounds normal. ASSESSMENT: Possible cellulitis in the tongue area where the patient has had previous surgery for malignancy. PLAN: Continue with antibiotics. If the patient remains afebrile for 24 hours, probably could be discharged home on oral antibiotics. Care was discussed with the patient.
[2017-04-06] MEDS: MULTIVITAMINS, THERA 1 EACH TAB PO SCH (13:00)
[2017-04-06] MEDS: SODIUM CHLORIDE 0.9% 1,000 ML IV SCH ×2 (15:34→20:51)
[2017-04-07] MEDS: SODIUM CHLORIDE 0.9% 1,000 ML IV SCH (05:39)
[2017-04-07 08:18] VITALS: BP 112/76; PULSE 73; TEMP 97.4
[2017-04-07] MEDS: CHOLECALCIFEROL 1,000 UNIT TAB PO SCH (08:27)
[2017-04-07] MEDS: PIPERACILLIN-TAZOBACTAM 3.375 GM in DEXTROSE/WATER 1 50ML.BAG IVPB SCH (08:27)
[2017-04-07] MEDS: ENOXAPARIN 40 MG/0.4 ML SYRINGE SQ SCH (08:27)
[2017-04-07] MEDS: PHENYLEPHRINE 0.25% NASAL SPRA 1 SPRAY/ML NASAL SCH (08:28)
--- NOTE | 2017-04-07 09:40 | PN ---
DATE OF SERVICE: 04/06/2017 This 81-year-old gentleman who was admitted with significant fever also had cellulitis of the neck, also. The patient had recent surgery as well as chemoradiation for throat cancer and tongue based cancer. The patient being closely monitored. The patient on broad spectrum IV antibiotics at this time. The cultures are negative at this time. Past medical history reviewed. REVIEW OF SYSTEMS: HEENT: As mentioned earlier. CARDIOVASCULAR: No angina. RESPIRATORY: As mentioned earlier. GI: As mentioned earlier. GENITOURINARY: No dysuria. CENTRAL NERVOUS SYSTEM: No numbness or weakness. Current medications are reviewed and include: 1. Tylenol 650 q.6h p.r.n. 2. Vitamin D3 1000 daily. 3. Lovenox 40 mg subcutaneously daily. 4. Multivitamins. 5. Narcan. 6. Zosyn 3.75 IV q.8. PHYSICAL EXAMINATION: The patient is alert and oriented times three. Pulse 73, blood pressure 100/68, respiratory rate 16, temperature 97.7, pulse ox 97% on room air. HEENT: Conjunctivae normal. Oral mucosa moist. Neck: No jugular venous distention. No thyroid enlargement. No carotid bruit. No lymph node enlargement. CARDIOVASCULAR: S1, S2 muffled. RESPIRATORY: Breath sounds diminished at the bases. A few rhonchi, no crackles. ABDOMEN: Soft, nontender. No mass palpable. Legs: No edema. No swelling. Nervous system: Higher functions as mentioned earlier. Moves all four limbs. No focal deficits. LYMPHATICS: No lymph nodes palpable in the neck, axillae or groin. SKIN: As mentioned earlier. Examination of the throat and neck, there is tenderness and diffuse erythema present in the of the neck, and some lymph node enlargement with some contractures also present. LABS: WBC 4, hemoglobin 10.7, platelets 126, albumin 3.3. ASSESSMENT: 1. Acute severe cellulitis of the neck, with high-grade fever. 2. History of chemoradiation for tongue based cancer. 3. Chronic aspiration. 4. Hyperlipidemia. 5. Anemia, normocytic. 6. Thrombocytopenia. RECOMMENDATIONS AND DISCUSSION: Recommend to continue current medications. Continue with IV antibiotics. Continue with symptomatic treatment. Follow the cultures. Prognosis guarded because of multiple complex medical issues. Further recommendations to follow. MTDD
[2017-04-07 11:51] VITALS: BMI 28.6
[2017-04-07] MEDS: MULTIVITAMINS, THERA 1 EACH TAB PO SCH (12:24)
--- NOTE | 2017-04-08 14:59 | DS ---
DATE OF ADMISSION: 04/04/2017 DATE OF DISCHARGE: 04/07/2017 FINAL DIAGNOSES: 1. Acute severe cellulitis with acute high-grade fever. 2. History of chemoradiation for tongue base cancer with metastases. 3. Chronic aspiration. 4. Hyperlipidemia. 5. Anemia, normocytic. 6. Thrombocytopenia. DISCHARGE DISPOSITION: The patient will be discharged in a stable condition with guarded prognosis. HISTORY OF PRESENT ILLNESS: This 81-year-old gentleman with a past medical history of multiple medical problems being followed by Dr. Copeland in the outpatient setting admitted with significant cellulitis around the neck. The patient seen by Infectious Disease and patient was treated with IV antibiotics and improved significantly. On exam, vitals are stable. CARDIOVASCULAR: S1, S2. ABDOMEN: Soft. NERVOUS SYSTEM: No focal deficit. DISCHARGE ADVICE: 1. Diet is cardiac. 2. Activities limited until follow-up. 3. Follow up with Dr. Copeland in 1 to 2 days. Medications will be as follows: 1. Tylenol 650 q.6 p.r.n. 2. Augmentin syrup 10 mL p.o. b.i.d. for one week. 3. Vitamin D 3000 daily. 4. Multivitamin 1 p.o. daily. 5. Calvin-Synephrine one spray in nostril. Follow with Dr. Villarreal as recommended.
== END 2017-04-07 13:54 | disposition home or self-care (01) | DRG 603 ==
LOC: EC 14:43 → 4MS4W 18:43
PROVIDERS: ADMIT Hospitalist; ATTEND Hospitalist
DX: L03.221 Cellulitis of neck (principal); D69.6 Thrombocytopenia, unspecified; D64.9 Anemia, unspecified; R13.10 Dysphagia, unspecified; E78.5 Hyperlipidemia, unspecified; Z85.810 Personal history of malignant neoplasm of tongue; Z85.46 Personal history of malignant neoplasm of prostate; Z85.89 Personal history of malignant neoplasm of other organs and systems; Z82.49 Family history of ischemic heart disease and other diseases of the circulatory system
CPT/HCPCS: 36415; 70491; 71020; 71260; 80053; 81003; 83605; 83735; 84134; 85025; 85652; 87040; 87077; 87186; 87502; 96365; 99285

== ENCOUNTER 2017-04-25 23:08 | Inpatient (IN) | payer MEDICARE ==
[2017-04-25] MEDS ORDERED: ONDANSETRON 4 MG/2 ML VIAL IVP STA (23:25)
[2017-04-25] MEDS ORDERED: MORPHINE SULFATE 2 MG/ML SYRINGE IVP STA (23:25)
[2017-04-25] MEDS ORDERED: SODIUM CHLORIDE 0.9% 1,000 ML IV STA (23:25)
--- NOTE | 2017-04-25 23:31 | ED ---
Abdominal Pain HPI - General Source: patient, RN notes reviewed Mode of arrival: ambulatory Limitations: no limitations <Charisse Campos - Last Filed: 04/25/17 23:28> <Tom Gonzalez - Last Filed: 04/26/17 01:53> - General Chief Complaint: Abdominal Pain Stated Complaint: Abd Pain Time Seen by Provider: 04/25/17 23:17 - History of Present Illness Initial Comments: Patient is 81-year-old male presents emergency for evaluation of abdominal pain. Patient states at noon began developing right upper quadrant and left upper quadrant pain. Patient states the pain lasted for about half hour and broke out in a cold sweat. Patient states that he took a nap and the pain subsided. Patient then states later on this evening he began having the abdominal pain again. Patient states the pain is not subsiding. Patient states the pain is constant throbbing pain. Patient states he has a history of inguinal hernia repair. Patient states he still has his gallbladder, appendix, spleen. Patient denies any fevers or chills. Patient denies chest pain. Patient denies shortness of breath. Patient denies alcohol use, smoking or illicit drug use. Patient denies history of cardiac issues. Patient does state he has a history of cancer in his throat. Patient states he went through chemo and radiation and is currently in remission. Patient states he does feel nauseous patient denies vomiting. Patient states he had a normal bowel movement about 40 minutes prior to arrival. Patient denies any back pain. Patient denies flank pain. Patient denies headache or dizziness. (Charisse Campos) - Related Data Home Medications Medication Instructions Recorded Confirmed Cholecalciferol [Vitamin D3] 1,000 unit PO DAILY 04/04/17 04/04/17 Multivitamins, Thera [Multivitamin 1 tab PO DAILY 04/04/17 04/04/17 (formulary)] Phenylephrine HCl [Calvin-Synephrine] 1 spray EA NOSTRIL DAILY 04/04/17 04/04/17 Previous Rx's Medication Instructions Recorded Amoxic-Pot Clav 400-57Mg/5Ml 10 ml PO Q12H #4 bottle 04/05/17 [Augmentin 400-57 mg/5 ml Liquid] Amoxic-Pot Clav 875-125Mg 1 tab PO Q12HR #14 tablet 04/05/17 [Augmentin 875-125] Acetaminophen Tab [Tylenol] 650 mg PO Q6HR PRN tab 04/07/17 Allergies Allergy/AdvReac Type Severity Reaction Status Date / Time No Known Allergies Allergy Verified 04/25/17 23:15 Review of Systems ROS Other: All systems not noted in ROS Statement are negative. <Charisse Campos - Last Filed: 04/25/17 23:28> ROS Other: All systems not noted in ROS Statement are negative. <Tom Gonzalez - Last Filed: 04/26/17 01:53> ROS Statement: Those systems with pertinent positive or pertinent negative responses have been documented in the HPI. Past Medical History Past Medical History: Cancer, Hyperlipidemia Additional Past Medical History / Comment(s): prostate cancer(had surgery and radiation). 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 surgery on throat. 20 lymph nodes removed. chemo and radiation in may 2016 for 7 weeks, PEG tube placement and removal, port placement and removal Past Anesthesia/Blood Transfusion Reactions: No Reported Reaction Past Psychological History: No Psychological Hx Reported Smoking Status: Never smoker Past Alcohol Use History: None Reported Past Drug Use History: None Reported - Past Family History Father Family Medical History: Congestive Heart Failure (CHF) Mother Family Medical History: Cancer Additional Family Medical History / Comment(s): cervical cancer Brother(s) Additional Family Medical History / Comment(s): Leukemia <Charisse Campos - Last Filed: 04/25/17 23:28> General Exam Limitations: no limitations General appearance: alert, in no apparent distress Head exam: Present: atraumatic, normocephalic, normal inspection Eye exam: Present: normal appearance, PERRL, EOMI Pupils: Present: normal accommodation ENT exam: Present: normal exam Neck exam: Present: normal inspection Respiratory exam: Present: normal lung sounds bilaterally. Absent: respiratory distress Cardiovascular Exam: Present: regular rate, normal rhythm, normal heart sounds GI/Abdominal exam: Present: soft, tenderness (Right upper quadrant, left upper quadrant, midepigastric), normal bowel sounds. Absent: distended, guarding, rebound, rigid Extremities exam: Present: normal inspection Back exam: Present: normal inspection Neurological exam: Present: alert, oriented X3, CN II-XII intact, normal gait Psychiatric exam: Present: normal affect, normal mood Skin exam: Present: warm, dry, intact, normal color. Absent: rash <Charisse Campos - Last Filed: 04/25/17 23:28> <Tom Gonzalez - Last Filed: 04/26/17 01:53> - General Exam Comments Initial Comments: Sitting in exam room, no acute distress. (Charisse Campos) Medical Decision Making <Charisse Campos - Last Filed: 04/25/17 23:28> - Lab Data Result diagrams: 04/25/17 23:40 04/25/17 23:40 <Tom Gonzalez - Last Filed: 04/26/17 01:53> - Medical Decision Making Pt with acute pancreatitis. Appears to be possible obstructive etiology with elevated LFT although bilirubin normal. Pt with GB sludge and pos sonographin murphys. STarted on Rocephin/Flagyl for coverage of possible early acute cholecystitis. Pt started on IVF and pain control. NPO. Will admit for further work up and evaluation. I spoke with Dr. Pryor about US results and he stated he would be on consult for the patient. Will admit to Dr. Velez. Pt and family updated. (Tom Gonzalez) - Lab Data Lab Results 04/25/17 04/25/17 04/25/17 Range/Units 23:40 23:40 23:40 WBC 4.4 (3.8-10.6) k/uL RBC 3.81 L (4.30-5.90) m/uL Hgb 12.2 L (13.0-17.5) gm/dL Hct 37.4 L (39.0-53.0) % MCV 98.1 (80.0-100.0) fL MCH 31.9 (25.0-35.0) pg MCHC 32.5 (31.0-37.0) g/dL RDW 13.6 (11.5-15.5) % Plt Count 164 (150-450) k/uL Neutrophils % 66 % Lymphocytes % 22 % Monocytes % 8 % Eosinophils % 1 % Basophils % 0 % Neutrophils # 2.9 (1.3-7.7) k/uL Lymphocytes # 1.0 (1.0-4.8) k/uL Monocytes # 0.4 (0-1.0) k/uL Eosinophils # 0.1 (0-0.7) k/uL Basophils # 0.0 (0-0.2) k/uL PT (9.0-12.0) sec INR (<1.1) APTT (22.0-30.0) sec Sodium 143 (137-145) mmol/L Potassium 4.1 (3.5-5.1) mmol/L Chloride 101 (98-107) mmol/L Carbon Dioxide 30 (22-30) mmol/L Anion Gap 12 mmol/L BUN 21 H (9-20) mg/dL Creatinine 0.70 (0.66-1.25) mg/dL Est GFR (MDRD) Af Amer >60 (>60 ml/min/1.73 sqM) Est GFR (MDRD) Non-Af >60 (>60 ml/min/1.73 sqM) Glucose 169 H (74-99) mg/dL Calcium 9.7 (8.4-10.2) mg/dL Magnesium 1.7 (1.6-2.3) mg/dL Total Bilirubin 0.7 (0.2-1.3) mg/dL AST 273 H (17-59) U/L ALT 174 H (21-72) U/L Alkaline Phosphatase 72 (38-126) U/L Total Creatine Kinase 52 L (55-170) U/L CK-MB (CK-2) 0.8 (0.0-2.4) ng/mL CK-MB (CK-2) Rel Index 1.5 Troponin I <0.012 (0.000-0.034) ng/mL Total Protein 7.2 (6.3-8.2) g/dL Albumin 4.1 (3.5-5.0) g/dL Amylase 354 H* (30-110) U/L Lipase 6705 H (23-300) U/L 04/25/17 Range/Units 23:40 WBC (3.8-10.6) k/uL RBC (4.30-5.90) m/uL Hgb (13.0-17.5) gm/dL Hct (39.0-53.0) % MCV (80.0-100.0) fL MCH (25.0-35.0) pg MCHC (31.0-37.0) g/dL RDW (11.5-15.5) % Plt Count (150-450) k/uL Neutrophils % % Lymphocytes % % Monocytes % % Eosinophils % % Basophils % % Neutrophils # (1.3-7.7) k/uL Lymphocytes # (1.0-4.8) k/uL Monocytes # (0-1.0) k/uL Eosinophils # (0-0.7) k/uL Basophils # (0-0.2) k/uL PT 10.7 (9.0-12.0) sec INR 1.1 (<1.1) APTT 23.0 (22.0-30.0) sec Sodium (137-145) mmol/L Potassium (3.5-5.1) mmol/L Chloride (98-107) mmol/L Carbon Dioxide (22-30) mmol/L Anion Gap mmol/L BUN (9-20) mg/dL Creatinine (0.66-1.25) mg/dL Est GFR (MDRD) Af Amer (>60 ml/min/1.73 sqM) Est GFR (MDRD) Non-Af (>60 ml/min/1.73 sqM) Glucose (74-99) mg/dL Calcium (8.4-10.2) mg/dL Magnesium (1.6-2.3) mg/dL Total Bilirubin (0.2-1.3) mg/dL AST (17-59) U/L ALT (21-72) U/L Alkaline Phosphatase (38-126) U/L Total Creatine Kinase (55-170) U/L CK-MB (CK-2) (0.0-2.4) ng/mL CK-MB (CK-2) Rel Index Troponin I (0.000-0.034) ng/mL Total Protein (6.3-8.2) g/dL Albumin (3.5-5.0) g/dL Amylase (30-110) U/L Lipase (23-300) U/L Disposition <Charisse Campos - Last Filed: 04/25/17 23:28> <Tom Gonzalez - Last Filed: 04/26/17 01:53> Clinical Impression: Acute pancreatitis Disposition: ADMITTED IP TO THIS HOSP Condition: Stable Referrals: Benny Copeland MD [Primary Care Provider] - 1-2 days
[2017-04-25 23:59] LABS: Basophils % (A) 0 %; CHCM 33.7; Eosinophils # (A) 0.1 k/uL (0-0.7); Eosinophils % (A) 1 %; HCT 37.4 % (39.0-53.0); HDW 2.32; HGB 12.2 gm/dL (13.0-17.5); Luc # (Auto) 0.11; Luc % (Auto) 3; Lymphocytes % (A) 22 %; MCH 31.9 pg (25.0-35.0); MCHC 32.5 g/dL (31.0-37.0); MCV 98.1 fL (80.0-100.0); Monocytes # (A) 0.4 k/uL (0-1.0); Monocytes % (A) 8 %; Neutrophils # (A) 2.9 k/uL (1.3-7.7); Neutrophils % (A) 66 %; RBC 3.81 m/uL (4.30-5.90); RDW 13.6 % (11.5-15.5); WBC 4.4 k/uL (3.8-10.6)
[2017-04-26 00:09] LABS: INR 1.1 (<1.1); Prothrombin Time 10.7 sec (9.0-12.0)
[2017-04-26 00:11] LABS: ALT 174 U/L (21-72); AST 273 U/L (17-59); Alkaline Phosphatase 72 U/L (38-126); Anion Gap 12 mmol/L; Blood Urea Nitrogen 21 mg/dL (9-20); Calcium 9.7 mg/dL (8.4-10.2); Carbon Dioxide 30 mmol/L (22-30); Chloride 101 mmol/L (98-107); Glucose 169 mg/dL (74-99); Magnesium 1.7 mg/dL (1.6-2.3); Non-African American GFR(MDRD) >60 (>60 ml/min/1.73 sqM); Potassium 4.1 mmol/L (3.5-5.1); Sodium 143 mmol/L (137-145); Total Bilirubin 0.7 mg/dL (0.2-1.3); Total Protein 7.2 g/dL (6.3-8.2)
[2017-04-26 00:20] LABS: Creatine Kinase 52 U/L (55-170)
[2017-04-26 00:25] LABS: Amylase 354 U/L (30-110)
--- NOTE | 2017-04-26 00:26 | XR ---
EXAM: XR Abdomen Complete With XR Chest CLINICAL HISTORY: Reason: Pain TECHNIQUE: Frontal view of the chest, frontal view of the abdomen/pelvis and upright view of the abdomen. COMPARISON: No relevant prior studies available. FINDINGS: Lungs: Unremarkable. No consolidation. Pleural space: Unremarkable. No pneumothorax. Heart: Unremarkable. No cardiomegaly. Mediastinum: Unremarkable. Intraperitoneal space: No pneumatosis or pneumoperitoneum. Gastrointestinal tract: Nonobstructive bowel gas pattern. Bones/joints: No acute fracture or malalignment. Soft tissues: Surgical clips are present in the left neck. Surgical clips project over the pelvis. Vasculature: Tortuosity and/or ectasia of the thoracic aorta. IMPRESSION: No acute cardiopulmonary process. Nonobstructive bowel gas pattern. No pneumatosis or pneumoperitoneum.
[2017-04-26 00:34] LABS: Creatine Kinase MB 0.8 ng/mL (0.0-2.4); Troponin I <0.012 ng/mL (0.000-0.034)
--- NOTE | 2017-04-26 01:16 | US ---
EXAM: US Abdomen Limited, Right Upper Quadrant CLINICAL HISTORY: Reason: Pain TECHNIQUE: Real-time ultrasound of the right upper quadrant with image documentation. COMPARISON: No relevant prior studies available. FINDINGS: Liver: The liver is normal in size and smooth in contour and measures 15.1 cm in length on the right. No focal hepatic lesions. Gallbladder: Echogenic debris in the distended gallbladder likely represents stones and sludge. No gallbladder wall thickening or pericholecystic fluid. Sonographic Bryan sign is positive. Common bile duct: Unremarkable as visualized. No stones. No dilation. Pancreas: The pancreas is not well-seen due to bowel gas. Right kidney: The right kidney measures 10.4 cm in length. No hydronephrosis, nephrolithiasis, or focal renal lesions. IMPRESSION: Stones and sludge are present in the distended gallbladder. Sonographic Bryan sign is positive. In the appropriate clinical setting, findings may represent early acute cholecystitis. No gallbladder wall thickening, pericholecystic fluid, or biliary dilatation. Nuclear medicine HIDA scan may be considered for further evaluation, as clinically indicated.
[2017-04-26] MEDS ORDERED: metroNIDAZOLE-NS PMX 500 MG in SALINE 1 100ML.BAG IVPB STA (01:18)
[2017-04-26] MEDS ORDERED: NALOXONE 0.4 MG/ML 1 ML VIAL IV PRN (01:44)
[2017-04-26] MEDS ORDERED: ONDANSETRON 4 MG/2 ML VIAL IVP PRN (01:44)
[2017-04-26] MEDS ORDERED: ACETAMINOPHEN TAB 325 MG TAB PO PRN (01:44)
[2017-04-26] MEDS: SODIUM CHLORIDE 0.9% 1,000 ML IV SCH ×3 (01:49→22:42)
[2017-04-26 02:52] VITALS: BMI 26.2
[2017-04-26 15:03] LABS: ALT 461 U/L (21-72); AST 426 U/L (17-59); Alkaline Phosphatase 84 U/L (38-126); Anion Gap 7 mmol/L; Blood Urea Nitrogen 15 mg/dL (9-20); Calcium 8.8 mg/dL (8.4-10.2); Carbon Dioxide 29 mmol/L (22-30); Chloride 107 mmol/L (98-107); Glucose 87 mg/dL (74-99); Non-African American GFR(MDRD) >60 (>60 ml/min/1.73 sqM); Potassium 3.9 mmol/L (3.5-5.1); Sodium 143 mmol/L (137-145); Total Bilirubin 0.8 mg/dL (0.2-1.3); Total Protein 6.2 g/dL (6.3-8.2)
[2017-04-26 15:08] LABS: Amylase 361 U/L (30-110)
--- NOTE | 2017-04-26 16:08 | P.GSCN ---
History of Present Illness Consult date: 04/26/17 Reason for Consult: Gallstone pancreatitis History of present illness: Patient came to the hospital yesterday with complaints of midepigastric pain. He describes the pain as being a pressure sensation. He had 2 episodes over a period a proximally 6-7 hours. The pain was a 10 out of 10. Some nausea but no vomiting. No change in bowel habits. Urine may be slightly darker than normal. No history of similar events. Workup has shown elevated liver and pancreatic enzymes in addition to an ultrasound of the abdomen showing gallstones. Denies fevers or chills. Pain is now resolved. White blood cell count 4.4 yesterday. Pancreatic enzymes trending down. Review of Systems The patient denies any acute changes in his vision or hearing, no dysphagia or odynophagia, no chest pain or shortness of breath, no dysuria or hematuria, no headache, no runny nose, no rectal bleeding or melena, no unexplained weight loss Past Medical History Past Medical History: Cancer, Hyperlipidemia Additional Past Medical History / Comment(s): prostate cancer(had surgery and radiation). 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 surgery on throat. 20 lymph nodes removed. chemo and radiation in may 2016 for 7 weeks, PEG tube placement and removal, port placement and removal Past Anesthesia/Blood Transfusion Reactions: No Reported Reaction Past Psychological History: No Psychological Hx Reported Smoking Status: Never smoker Past Alcohol Use History: None Reported Past Drug Use History: None Reported - Past Family History Father Family Medical History: Congestive Heart Failure (CHF) Mother Family Medical History: Cancer Additional Family Medical History / Comment(s): cervical cancer Brother(s) Additional Family Medical History / Comment(s): Leukemia Medications and Allergies Home Medications Medication Instructions Recorded Confirmed Type Cholecalciferol [Vitamin D3] 1,000 unit PO DAILY 04/04/17 04/26/17 History Multivitamins, Thera [Multivitamin 1 tab PO DAILY 04/04/17 04/26/17 History (formulary)] Phenylephrine HCl [Calvin-Synephrine] 1 spray EA NOSTRIL DAILY 04/04/17 04/26/17 History Allergies Allergy/AdvReac Type Severity Reaction Status Date / Time No Known Allergies Allergy Verified 04/25/17 23:15 Surgical - Exam Vital Signs Temp Pulse Resp BP Pulse Ox 97.6 F 74 16 134/73 99 04/25/17 23:10 04/25/17 23:10 04/25/17 23:10 04/25/17 23:10 04/25/17 23:10 Physical exam: General: Well-developed, well-nourished HEENT: Normocephalic, sclerae nonicteric Abdomen: Nontender, nondistended Extremities: No edema Neuro: Alert and oriented Results - Labs 04/25/17 23:40 04/26/17 14:42 Abnormal Lab Results - Last 24 Hours (Table) 04/25/17 04/25/17 04/25/17 Range/Units 23:40 23:40 23:40 RBC 3.81 L (4.30-5.90) m/uL Hgb 12.2 L (13.0-17.5) gm/dL Hct 37.4 L (39.0-53.0) % BUN 21 H (9-20) mg/dL Creatinine (0.66-1.25) mg/dL Glucose 169 H (74-99) mg/dL AST 273 H (17-59) U/L ALT 174 H (21-72) U/L Total Creatine Kinase 52 L (55-170) U/L Total Protein (6.3-8.2) g/dL Albumin (3.5-5.0) g/dL Amylase 354 H* (30-110) U/L Lipase 6705 H (23-300) U/L 04/26/17 Range/Units 14:42 RBC (4.30-5.90) m/uL Hgb (13.0-17.5) gm/dL Hct (39.0-53.0) % BUN (9-20) mg/dL Creatinine 0.60 L (0.66-1.25) mg/dL Glucose (74-99) mg/dL AST 426 H (17-59) U/L ALT 461 H (21-72) U/L Total Creatine Kinase (55-170) U/L Total Protein 6.2 L (6.3-8.2) g/dL Albumin 3.4 L (3.5-5.0) g/dL Amylase 361 H* (30-110) U/L Lipase 1720 H (23-300) U/L Diabetes panel 04/25/17 04/26/17 Range/Units 23:40 14:42 Sodium 143 143 (137-145) mmol/L Potassium 4.1 3.9 (3.5-5.1) mmol/L Chloride 101 107 (98-107) mmol/L Carbon Dioxide 30 29 (22-30) mmol/L BUN 21 H 15 (9-20) mg/dL Creatinine 0.70 0.60 L (0.66-1.25) mg/dL Glucose 169 H 87 (74-99) mg/dL Calcium 9.7 8.8 (8.4-10.2) mg/dL AST 273 H 426 H (17-59) U/L ALT 174 H 461 H (21-72) U/L Alkaline Phosphatase 72 84 (38-126) U/L Total Protein 7.2 6.2 L (6.3-8.2) g/dL Albumin 4.1 3.4 L (3.5-5.0) g/dL Calcium panel 04/25/17 04/26/17 Range/Units 23:40 14:42 Calcium 9.7 8.8 (8.4-10.2) mg/dL Albumin 4.1 3.4 L (3.5-5.0) g/dL Pituitary panel 04/25/17 04/26/17 Range/Units 23:40 14:42 Sodium 143 143 (137-145) mmol/L Potassium 4.1 3.9 (3.5-5.1) mmol/L Chloride 101 107 (98-107) mmol/L Carbon Dioxide 30 29 (22-30) mmol/L BUN 21 H 15 (9-20) mg/dL Creatinine 0.70 0.60 L (0.66-1.25) mg/dL Glucose 169 H 87 (74-99) mg/dL Calcium 9.7 8.8 (8.4-10.2) mg/dL Adrenal panel 04/25/17 04/26/17 Range/Units 23:40 14:42 Sodium 143 143 (137-145) mmol/L Potassium 4.1 3.9 (3.5-5.1) mmol/L Chloride 101 107 (98-107) mmol/L Carbon Dioxide 30 29 (22-30) mmol/L BUN 21 H 15 (9-20) mg/dL Creatinine 0.70 0.60 L (0.66-1.25) mg/dL Glucose 169 H 87 (74-99) mg/dL Calcium 9.7 8.8 (8.4-10.2) mg/dL Total Bilirubin 0.7 0.8 (0.2-1.3) mg/dL AST 273 H 426 H (17-59) U/L ALT 174 H 461 H (21-72) U/L Alkaline Phosphatase 72 84 (38-126) U/L Total Protein 7.2 6.2 L (6.3-8.2) g/dL Albumin 4.1 3.4 L (3.5-5.0) g/dL Assessment and Plan (1) Gallstone pancreatitis Narrative/Plan: Keep nothing by mouth for now. Repeat lab values tomorrow. Empiric antibiotics. Probable cholecystectomy either later during this hospitalization or early post discharge. The patient is well known to Dr. Mckenna. I will discuss the case with her and if she is agreeable she will takeover care of this patient starting tomorrow. Status: Acute
--- NOTE | 2017-04-26 20:24 | HP ---
DATE OF ADMISSION: 04/26/2017 PRESENTING COMPLAINT: Abdominal pain. HISTORY OF PRESENTING COMPLAINT: This is a very pleasant 81-year-old patient who follows with Dr. Copeland. Patient had a diagnosis of cancer of the base of the tongue that extended locally. This was followed by surgical resection and then followed up at [facility] and also got chemotherapy. Patient because of poor oral intake initially had a PEG tube and then switched over to p.o. Patient presented yesterday with severe abdominal pain, some nausea, slight vomiting; 2 or 3 episodes, and then presented here. Same pain radiated to the back. There was no fever. It lasted for variable amounts of time. Patient was feeling weak and tired and therefore decided to come in. REVIEW OF SYSTEMS: CONSTITUTIONAL: Tired. HEENT: Some difficulty in swallowing. RESPIRATORY: Chronic cough. CARDIOVASCULAR: None. GASTROINTESTINAL: As above. GENITOURINARY: None. MUSCULOSKELETAL: None. DERMATOLOGICAL: None. HEMATOLOGICAL: None. LYMPHATICS: None. PSYCHIATRY: None. NEUROLOGICAL: None. PAST MEDICAL HISTORY: 1. Base of tongue cancer. 2. Hyperlipidemia. 3. Aspiration. PAST SURGICAL HISTORY: 1. Prostate surgery. 2. Oral caries surgery. 3. Prostatectomy. SOCIAL HISTORY: No smoking or alcohol. . Patient was a teacher. FAMILY HISTORY: Cervical cancer. Congestive heart failure. HOME MEDICATIONS: 1. Neosynephrine 1 spray each nostril daily. 2. Multivitamin 1 tablet p.o. daily. 3. Vitamin D3 1000 units p.o. daily. 4. Tylenol 650 mg q.6 p.r.n. ALLERGIES: NONE. On examination, temperature 98.3, pulse 66, respiration 20, blood pressure 101/57, pulse ox 97% on 2 L. GENERAL APPEARANCE: Average build. Sitting up. Not in distress. EYES: Pupils equal. Conjunctivae normal. HEENT: Oral cavity scar tissue. NECK: JVD not raised. Mass not palpable. RESPIRATORY: Effort normal. Lungs are clear. CARDIOVASCULAR: First and second sounds normal. No edema. ABDOMEN: Soft. Minimal epigastric tenderness. Liver and spleen not palpable. LYMPHATIC: No lymph node palpable in neck or axillae. PSYCHIATRY: Alert and oriented x3. Mood and affect normal. INVESTIGATIONS: White count 4.4, hemoglobin 12.2. Potassium 4.1. AST 273, ALT 174 on presentation. Today they are 426 and 461. Patient's amylase and lipase were 354 and 6705 on presentation; today they are 361 and 1720. Abdominal ultrasound shows stones and sludge present in distended gallbladder. ASSESSMENT: 1. Acute gallstone pancreatitis. 2. Acute obstructive hepatitis. 3. History of oral cancer with surgery. 4. Chronic mild dysphagia. PLAN: Patient is n.p.o. Surgery was consulted from the ER. Subcutaneous heparin for DVT prophylaxis. IV fluids. ( ) chips ( ) Surgery. Patient may need an ERCP when the pancreas is more settled down prior to proceeding with surgery. Care was discussed with the patient.
[2017-04-27] MEDS: SODIUM CHLORIDE 0.9% 1,000 ML IV SCH ×2 (08:19→18:06)
[2017-04-27] MEDS: MORPHINE SULFATE 4 MG/ML SYRINGE IV PRN ×4 (08:22→22:01)
[2017-04-27 08:29] LABS: ALT 319 U/L (21-72); AST 181 U/L (17-59); Alkaline Phosphatase 82 U/L (38-126); Anion Gap 7 mmol/L; Blood Urea Nitrogen 15 mg/dL (9-20); Calcium 8.6 mg/dL (8.4-10.2); Carbon Dioxide 28 mmol/L (22-30); Chloride 106 mmol/L (98-107); Glucose 87 mg/dL (74-99); Non-African American GFR(MDRD) >60 (>60 ml/min/1.73 sqM); Potassium 4.1 mmol/L (3.5-5.1); Sodium 141 mmol/L (137-145); Total Bilirubin 0.9 mg/dL (0.2-1.3); Total Protein 6.1 g/dL (6.3-8.2)
[2017-04-27 08:38] LABS: Amylase 355 U/L (30-110)
--- NOTE | 2017-04-27 08:45 | P.GSCN ---
History of Present Illness Consult date: 04/26/17 Reason for Consult: Gallstone pancreatitis Requesting physician: Manjinder Pryor History of present illness: The patient is well-known to me from his recent inguinal hernia repair last fall in 2016. I'm aware of history of esophageal cancer including pre-existing dysphagia. I have been asked by Dr. Pryor for surgical management of the patient's gallstone pancreatitis and upon family request. The patient is a pleasant 81-year-old gentleman who reported having acute abdominal pain within the last 1 to 2 days. At that time, he reports eating eggs and sausage for breakfast. He states the pain was so severe "I felt like I was having a baby.". He presented with moderately elevated liver enzymes including pancreatic enzymes consistent with acute pancreatitis. No prior episodes. I am aware of moderate weight loss of over 20-30 pounds the end of last year from his esophageal cancer and requirement of tube feedings. He describes following up with multiple oncologist including in [place] and in [place]. He is due to see his surgical oncologist next week. He has been nothing by mouth with improvement of his abdominal pain. He reports hunger. He prefers thickened fluids and food where he has least amount of dysphagia. He also reports that his Mediport and PEG tube were discontinued by his oncology providers. He also describes having recent fever of unknown origin with the last 30 days which required prolonged antibiotics upon review and follow-up with his infectious disease provider, Dr. Villarreal. He is eager to undergo surgical intervention for his gallstone pancreatitis. Review of Systems CONSTITUTIONAL: Previous fevers and chills with the last 30 days with treatment for fever of unknown organism with amoxicillin. Has weight loss over 20-30 pounds within the last 1 year secondary to esophageal cancer and chemoradiation. HEENT: Denies any trouble with vision, hearing or nosebleeds. Had risk of aspiration from dysphasia to the thin liquids. He prefers thickened fluids LYMPHATIC: History of left neck dissection including lymphatic removal with radiation to the neck. ENDOCRINE: Denies any thyroid disorders. Denies any blood sugar glucose intolerance. RESPIRATORY: Previous pneumonia within the last 12 months. Denies acute dyspnea on exertion. CARDIOVASCULAR: Denies any chest pain, palpitations, or recent heart attacks. GASTROINTESTINAL: Denies constipation or bright red blood per rectum. GENITOURINARY: Denies any blood in urine or increased urinary frequency. MUSCULOSKELETAL: Has back pain, stiffness, joint arthritis. NEUROLOGIC: Denies any numbness or tingling along the distal extremities. No seizure disorders or headaches. PSYCHIATRIC: Denies depression or suidical ideation. HEMATOLOGIC: Denies any abnormal bleeding or bruising. Past Medical History Past Medical History: Cancer, Hyperlipidemia Additional Past Medical History / Comment(s): prostate cancer(had surgery and radiation). 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 surgery on throat. 20 lymph nodes removed. chemo and radiation in may 2016 for 7 weeks, PEG tube placement and removal, port placement and removal Past Anesthesia/Blood Transfusion Reactions: No Reported Reaction Past Psychological History: No Psychological Hx Reported Smoking Status: Never smoker Past Alcohol Use History: None Reported Past Drug Use History: None Reported - Past Family History Father Family Medical History: Congestive Heart Failure (CHF) Mother Family Medical History: Cancer Additional Family Medical History / Comment(s): cervical cancer Brother(s) Additional Family Medical History / Comment(s): Leukemia Medications and Allergies Home Medications Medication Instructions Recorded Confirmed Type Cholecalciferol [Vitamin D3] 1,000 unit PO DAILY 04/04/17 04/26/17 History Multivitamins, Thera [Multivitamin 1 tab PO DAILY 04/04/17 04/26/17 History (formulary)] Phenylephrine HCl [Calvin-Synephrine] 1 spray EA NOSTRIL DAILY 04/04/17 04/26/17 History Allergies Allergy/AdvReac Type Severity Reaction Status Date / Time No Known Allergies Allergy Verified 04/25/17 23:15 Surgical - Exam Vital Signs Temp Pulse Resp BP Pulse Ox 97.6 F 74 16 134/73 99 04/25/17 23:10 04/25/17 23:10 04/25/17 23:10 04/25/17 23:10 04/25/17 23:10 GENERAL: Well developed and in no acute distress. Pleasant. HEENT: No sclera icterus. Extraocular movements grossly intact. Moist buccal mucosa. Head is atraumatic, normocephalic. Hears conversational speech. No nasal drainage. NECK: Skin along the neck and base of chin firm with radiation changes including hyperpigmentation. No recurrent palpable adenopathy along the bilateral neck CHEST: Non-labored respirations and equal bilateral excursions. CARDIOVASCULAR: Regular rate and rhythm. Palpable 2+ radial pulses. ABDOMEN: Soft, nontender. Nondistended. MUSCULOSKELETAL: No clubbing, cyanosis or edema. NEUROLOGIC: No focal or lateralizing signs. PSYCH: Appropriate affect. Alert and oriented to person, place and time. Results - Labs 04/25/17 23:40 04/26/17 14:42 Abnormal Lab Results - Last 24 Hours (Table) 04/26/17 Range/Units 14:42 Creatinine 0.60 L (0.66-1.25) mg/dL AST 426 H (17-59) U/L ALT 461 H (21-72) U/L Total Protein 6.2 L (6.3-8.2) g/dL Albumin 3.4 L (3.5-5.0) g/dL Amylase 361 H* (30-110) U/L Lipase 1720 H (23-300) U/L Diabetes panel 04/26/17 Range/Units 14:42 Sodium 143 (137-145) mmol/L Potassium 3.9 (3.5-5.1) mmol/L Chloride 107 (98-107) mmol/L Carbon Dioxide 29 (22-30) mmol/L BUN 15 (9-20) mg/dL Creatinine 0.60 L (0.66-1.25) mg/dL Glucose 87 (74-99) mg/dL Calcium 8.8 (8.4-10.2) mg/dL AST 426 H (17-59) U/L ALT 461 H (21-72) U/L Alkaline Phosphatase 84 (38-126) U/L Total Protein 6.2 L (6.3-8.2) g/dL Albumin 3.4 L (3.5-5.0) g/dL Calcium panel 04/26/17 Range/Units 14:42 Calcium 8.8 (8.4-10.2) mg/dL Albumin 3.4 L (3.5-5.0) g/dL Pituitary panel 04/26/17 Range/Units 14:42 Sodium 143 (137-145) mmol/L Potassium 3.9 (3.5-5.1) mmol/L Chloride 107 (98-107) mmol/L Carbon Dioxide 29 (22-30) mmol/L BUN 15 (9-20) mg/dL Creatinine 0.60 L (0.66-1.25) mg/dL Glucose 87 (74-99) mg/dL Calcium 8.8 (8.4-10.2) mg/dL Adrenal panel 04/26/17 Range/Units 14:42 Sodium 143 (137-145) mmol/L Potassium 3.9 (3.5-5.1) mmol/L Chloride 107 (98-107) mmol/L Carbon Dioxide 29 (22-30) mmol/L BUN 15 (9-20) mg/dL Creatinine 0.60 L (0.66-1.25) mg/dL Glucose 87 (74-99) mg/dL Calcium 8.8 (8.4-10.2) mg/dL Total Bilirubin 0.8 (0.2-1.3) mg/dL AST 426 H (17-59) U/L ALT 461 H (21-72) U/L Alkaline Phosphatase 84 (38-126) U/L Total Protein 6.2 L (6.3-8.2) g/dL Albumin 3.4 L (3.5-5.0) g/dL - Imaging US - abdomen: report reviewed, image reviewed (Moderate gallstones identified including along the body and infundibulum of the gallbladder.) Assessment and Plan (1) Acute pancreatitis Status: Acute (2) Gallstone pancreatitis Status: Acute (3) Cancer of base of tongue Status: Acute (4) Fever of unknown origin (FUO) Status: Acute (5) History of throat cancer Status: Acute (6) H/O esophagectomy Status: Chronic (7) H/O prostatectomy Status: Chronic Plan: 1. As the patient is well-known to me, he has multiple surgical challenges including a difficult airway, previous history of urethral stricture and with his history of prostate cancer, where placement of [place] catheter has been difficult in the past. I have recommended surgical intervention preferably in a controlled environment with all available staff as he is a challenging surgical case. 2. He reports hunger and his abdominal pain is completely resolved. May start diet however low fat. 3. We will evaluate his additional chemistries. Surgical intervention to proceed once his liver enzymes and pancreatic enzymes has improved. Will follow closely. Thank you very much for this kind consultation.
[2017-04-27 10:33] LABS: Appearance,Urine Clear (Clear); Bilirubin,Urine Negative (Negative); Glucose,Urine (UA) Negative (Negative); Ketones,Urine Negative (Negative); Leukocyte Esterase,Urine Negative (Negative); Nitrite,Urine Negative (Negative); Protein,Urine Negative (Negative); Specific Gravity,Urine 1.008 (1.001-1.035); UA Billing (MACRO vs. MICRO) CHEM; Urobilinogen,Urine <2.0 mg/dL (<2.0)
[2017-04-27] MEDS ORDERED: RX INFO: IV CONTRAST WAS GIVEN 1 EACH MISC MISCELLANE PRN (18:44)
[2017-04-27] MEDS: IOHEXOL 350 MG/ML 25 ML BOTTLE (ORAL USE) PO PRN ×2 (18:57→20:08)
--- NOTE | 2017-04-27 20:29 | P.CONS ---
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 May [address] Estrada and was sent to Dr. Dale for lymph node enlargement. He underwent a PET scan followed by biopsy done by Dr. Dale and also needle biopsy was done and both resulted cancer. Patient was sent to [facility] head and neck surgery team in [place]. Twenty lymph nodes were removed and 3 were cancerous. He started chemotherapy and radiation therapy which she completed in August 2016. He was on 5-fluorouracil and carboplatin. In September 2016 he developed a swollen tender red area to the left side of his neck and he had a needle biopsy and CAT scan with contrast at [facility] showed no solid mass but fluid collection in the area. Patient was put on antibiotics and subsequently ended up at [facility] due to fevers. He was admitted to the hospital and seen by ID service at that time. During his hospitalization he did have a PEG tube placed he was on IV antibiotics and transitioned to Augmentin at the time of his discharge. Patient states he oropeza and [place] and while there this winter he had the PEG tube and his port removed. He has been taking all nourishment orally and is currently taking boost as a supplement. He states he has gained 10 pounds but his appetite is never very good and he just forces himself to eat. 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 During his last admission he subsequently had the onset of fever and chills. He was found evidence of a significant cellulitis of his neck. With antibiotic therapy and massaging the chronic lymphedema to the tissue he had improvement. He has completed his course of oral antibiotic therapy. Now presents to Hospital significant abdominal pain. Imaging studies reveal evidence of acute cholecystitis and pancreatitis. He is being followed by general surgery with plans for elective cholecystitis in the near future because of his symptoms. He leukocytosis and Nae Abel was requested. 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 May [address] Estrada and was sent to Dr. Dale for lymph node enlargement. He underwent a PET scan followed by biopsy done by Dr. Dale and also needle biopsy was done and both resulted cancer. Patient was sent to [facility] head and neck surgery team in [place]. Twenty lymph nodes were removed and 3 were cancerous. He started chemotherapy and radiation therapy which she completed in August 2016. He was on 5-fluorouracil and carboplatin. In September 2016 he developed a swollen tender red area to the left side of his neck and he had a needle biopsy and CAT scan with contrast at [facility] showed no solid mass but fluid collection in the area. Patient was put on antibiotics and subsequently ended up at [facility] due to fevers. He was admitted to the hospital and seen by ID service at that time. During his hospitalization he did have a PEG tube placed he was on IV antibiotics and transitioned to Augmentin at the time of his discharge. Patient states he [place]pe[place] and [place] and while there this winter he had the PEG tube and his port removed. He has been taking all nourishment orally and is currently taking boost as a supplement. He states he has gained 10 pounds but his appetite is never very good and he just forces himself to eat. He is known to have trouble with his epiglottis and aspiration Past Medical History Past Medical History: Cancer, Hyperlipidemia Additional Past Medical History / Comment(s): prostate cancer(had surgery and radiation). 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 surgery on throat. 20 lymph nodes removed. chemo and radiation in may 2016 for 7 weeks, PEG tube placement and removal, port placement and removal Past Anesthesia/Blood Transfusion Reactions: No Reported Reaction Past Psychological History: No Psychological Hx Reported Smoking Status: Never smoker Past Alcohol Use History: None Reported Past Drug Use History: None Reported - Past Family History Father Family Medical History: Congestive Heart Failure (CHF) Mother Family Medical History: Cancer Additional Family Medical History / Comment(s): cervical cancer Brother(s) Additional Family Medical History / Comment(s): Leukemia Medications and Allergies Home Medications and Allergies Comment(s): Current Medications Acetaminophen (Tylenol Tab) 650 mg PO Q6HR PRN PRN Reason: Mild Pain or Fever > 100.5 Sodium Chloride (Saline 0.9%) 1,000 mls @ 100 mls/hr IV .Q10H AARON Last Admin: 04/27/17 18:06 Dose: 100 mls/hr Iohexol (Omnipaque 350 Mg/Ml (For Oral Use)) 25 ml PO Q60M PRN PRN Reason: CT Scan Stop: 04/28/17 18:44 Last Admin: 04/27/17 20:08 Dose: 25 ml Miscellaneous Information (Rx Info: Iv Contrast Was Given) 1 each MISCELLANE DAILY PRN PRN Reason: Per Protocol Stop: 04/29/17 18:44 Morphine Sulfate (Morphine Sulfate (Inj)) 4 mg IV Q4HR PRN PRN Reason: Severe Pain Last Admin: 04/27/17 18:01 Dose: 4 mg Naloxone HCl (Narcan) 0.2 mg IV Q2M PRN PRN Reason: Opioid Reversal Ondansetron HCl (Zofran) 4 mg IVP Q8HR PRN PRN Reason: Nausea And Vomiting Last Admin: 04/27/17 08:22 Dose: 4 mg Home Medications Medication Instructions Recorded Confirmed Type Cholecalciferol [Vitamin D3] 1,000 unit PO DAILY 04/04/17 04/26/17 History Multivitamins, Thera [Multivitamin 1 tab PO DAILY 04/04/17 04/26/17 History (formulary)] Phenylephrine HCl [Calvin-Synephrine] 1 spray EA NOSTRIL DAILY 04/04/17 04/26/17 History Allergies Allergy/AdvReac Type Severity Reaction Status Date / Time No Known Allergies Allergy Verified 04/25/17 23:15 Physical Exam Vitals: Vital Signs Temp Pulse Resp BP Pulse Ox 04/27/17 15:00 100.6 F H 90 22 121/72 96 04/27/17 08:00 98.0 F 70 22 107/61 97 04/27/17 07:00 99.0 F 73 22 109/71 98 04/26/17 23:00 98.3 F 67 20 104/60 96 Intake and Output 04/27/17 04/27/17 04/27/17 06:59 14:59 22:59 Intake Total 100 Balance 100 Intake: Oral 100 Other: # Voids 1 1 Gen: This is a 81-year-old male. He is sitting up in bed and appears to be in no acute distress. He is currently eating his breakfast and does not show any signs of aspiration or coughing. HEENT: Head is atraumatic, normocephalic. Pupils equal, round. Sclerae is anicteric. Conjunctiva pink. Mucous members of the mouth are somewhat dry. No thrush noted. NECK: Supple. No JVD. No lymphadenopathy. No thyromegaly. Healed scar to the left side of his neck. Swelling and erythema to the left side of his neck is resolved. The woody nature of his tissue is without change LUNGS: Clear to auscultation. No wheezes or rhonchi. No intercostal retractions. HEART: Regular rate and rhythm. No murmur. ABDOMEN: Soft. Some bowel sounds are heard. Has distinct tenderness in the midepigastrium. No bruising to the bowel wall is seen. No flank tenderness. Does not have rigidity or chandana guarding or rebound. Abdomen though is quite tender. EXTREMITIES: No pedal edema. No calf tenderness. Dorsalis pedis +2 bilaterally. NEUROLOGICAL: Patient is awake, alert and oriented x3. Patient has no acute gross focal sensory motor deficits. Results CBC & Chem 7: 04/25/17 23:40 04/27/17 07:08 Labs: Abnormal Lab Results - Last 24 Hours (Table) 04/27/17 Range/Units 07:08 Creatinine 0.65 L (0.66-1.25) mg/dL AST 181 H (17-59) U/L ALT 319 H (21-72) U/L Total Protein 6.1 L (6.3-8.2) g/dL Albumin 3.2 L (3.5-5.0) g/dL Amylase 355 H* (30-110) U/L Lipase 4441 H (23-300) U/L Laboratory Results WBC 4.4 k/uL (3.8-10.6) 04/25/17 23:40 RBC 3.81 m/uL (4.30-5.90) L 04/25/17 23:40 Hgb 12.2 gm/dL (13.0-17.5) L 04/25/17 23:40 Hct 37.4 % (39.0-53.0) L 04/25/17 23:40 MCV 98.1 fL (80.0-100.0) 04/25/17 23:40 MCH 31.9 pg (25.0-35.0) 04/25/17 23:40 MCHC 32.5 g/dL (31.0-37.0) 04/25/17 23:40 RDW 13.6 % (11.5-15.5) 04/25/17 23:40 Plt Count 164 k/uL (150-450) 04/25/17 23:40 Neutrophils % 66 % 04/25/17 23:40 Lymphocytes % 22 % 04/25/17 23:40 Monocytes % 8 % 04/25/17 23:40 Eosinophils % 1 % 04/25/17 23:40 Basophils % 0 % 04/25/17 23:40 Neutrophils # 2.9 k/uL (1.3-7.7) 04/25/17 23:40 Lymphocytes # 1.0 k/uL (1.0-4.8) 04/25/17 23:40 Monocytes # 0.4 k/uL (0-1.0) 04/25/17 23:40 Eosinophils # 0.1 k/uL (0-0.7) 04/25/17 23:40 Basophils # 0.0 k/uL (0-0.2) 04/25/17 23:40 PT 10.7 sec (9.0-12.0) 04/25/17 23:40 INR 1.1 (<1.1) 04/25/17 23:40 APTT 23.0 sec (22.0-30.0) 04/25/17 23:40 Sodium 141 mmol/L (137-145) 04/27/17 07:08 Potassium 4.1 mmol/L (3.5-5.1) 04/27/17 07:08 Chloride 106 mmol/L (98-107) 04/27/17 07:08 Carbon Dioxide 28 mmol/L (22-30) 04/27/17 07:08 Anion Gap 7 mmol/L 04/27/17 07:08 BUN 15 mg/dL (9-20) 04/27/17 07:08 Creatinine 0.65 mg/dL (0.66-1.25) L 04/27/17 07:08 Est GFR (MDRD) Af Amer >60 (>60 ml/min/1.73 sqM) 04/27/17 07:08 Est GFR (MDRD) Non-Af >60 (>60 ml/min/1.73 sqM) 04/27/17 07:08 Glucose 87 mg/dL (74-99) 04/27/17 07:08 Calcium 8.6 mg/dL (8.4-10.2) 04/27/17 07:08 Magnesium 1.7 mg/dL (1.6-2.3) 04/25/17 23:40 Total Bilirubin 0.9 mg/dL (0.2-1.3) 04/27/17 07:08 AST 181 U/L (17-59) H 04/27/17 07:08 ALT 319 U/L (21-72) H 04/27/17 07:08 Alkaline Phosphatase 82 U/L (38-126) 04/27/17 07:08 Total Creatine Kinase 52 U/L (55-170) L 04/25/17 23:40 CK-MB (CK-2) 0.8 ng/mL (0.0-2.4) 04/25/17 23:40 CK-MB (CK-2) Rel Index 1.5 04/25/17 23:40 Troponin I <0.012 ng/mL (0.000-0.034) 04/25/17 23:40 Total Protein 6.1 g/dL (6.3-8.2) L 04/27/17 07:08 Albumin 3.2 g/dL (3.5-5.0) L 04/27/17 07:08 Amylase 355 U/L (30-110) H* 04/27/17 07:08 Lipase 4441 U/L (23-300) H 04/27/17 07:08 Urine Color Yellow 04/27/17 10:00 Urine Appearance Clear (Clear) 04/27/17 10:00 Urine pH 5.0 (5.0-8.0) 04/27/17 10:00 Ur Specific [place] 1.008 (1.001-1.035) 04/27/17 10:00 Urine Protein Negative (Negative) 04/27/17 10:00 Urine Glucose (UA) Negative (Negative) 04/27/17 10:00 Urine Ketones Negative (Negative) 04/27/17 10:00 Urine Blood Negative (Negative) 04/27/17 10:00 Urine Nitrite Negative (Negative) 04/27/17 10:00 Urine Bilirubin Negative (Negative) 04/27/17 10:00 Urine Urobilinogen <2.0 mg/dL (<2.0) 04/27/17 10:00 Ur Leukocyte Esterase Negative (Negative) 04/27/17 10:00 Assessment and Plan (1) Gallstone pancreatitis Status: Acute (2) Fever Narrative/Plan: Pleasant 81-year-old male who has a history of head and neck cancer. Status post surgical intervention and radiation therapy. Recent stay at hospital revealed evidence of the extensive cellulitis to the left side of his neck. Fortunately has responded very well to a course of antibiotic therapy and is resolved at this time. Is now presenting to hospital with severe abdominal pain is now having evidence of gallstone pancreatitis and cholecystitis. He is developed a fever. It is prudent to initiate antibiotic therapy and ertapenem will be utilized for coverage of the gallbladder and sepsis related. Fortunately the jaws doing very well. Surgery is following and likely will have an elective cholecystitis, Saturday. Pain control is improved. Is not having significant leukocytosis, but review of his white cell counts reveal that he may not be able to mouth much of a response after his prior interventions. Status: Acute
--- NOTE | 2017-04-27 20:48 | CT ---
EXAMINATION TYPE: CT abdomen pelvis w con DATE OF EXAM: 04/27/2017 COMPARISON: NONE HISTORY: Patient complains of epigastric pain and nausea. CT DLP: 672.6 mGycm Automated exposure control for dose reduction was used. TECHNIQUE: Helical acquisition of images was performed from the lung bases through the pelvis. CONTRAST: Performed with Oral Contrast and with IV Contrast, patient injected with 100 mL of Omnipaque 300. FINDINGS: There is patchy interstitial infiltrate and atelectasis at the posterior lung bases. There is no pleu ral effusion. There is a small hiatal hernia. Liver shows no focal defect. Gallbladder is mildly dilated and measures 5 cm. There is no sign of a p ancreatic mass. Spleen appears normal. There is no adrenal mass. Kidneys show satisfactory contrast opacification. There is no hydronephrosi s. Ureters are not dilated. I see no retroperitoneal adenopathy. Bladder distends smoothly. There are surgical clips at the floor of the pelvis. There is some free fluid in the pelvis. There is possible wall thickening involving the cecum. There appears to be some inflammatory changes around the cecum and fluid in the right paracolic gutter. Appendix is not well seen. I see no bony destructive process .: Part of the appendix appears to be visualized and does not appear thickened. IMPRESSION: THERE IS SOME FREE FLUID IN THE PELVIS. THERE IS FLUID IN THE RIGHT PARACOLIC GUTTER AND PROBABLY PANCHITO E INFLAMMATORY CHANGES INVOLVING THE CECUM. THIS COULD RELATE TO COLITIS OR INFLAMMATORY BOWEL DISEAS E. FLUID IN THE PELVIS MEASURES 5 X 3 CM. MILDLY DILATED GALLBLADDER. CHOLECYSTITIS SHOULD BE CONSIDERED.
[2017-04-27] MEDS: ERTAPENEM 1 GM in SODIUM CHLORIDE 0.9% 50 ML IVPB SCH (21:15)
--- NOTE | 2017-04-27 22:30 | P.PN ---
Progress Note - Text DATE OF SERVICE: 04/27/2017 PRESENTING COMPLAINT: Acute abdominal pain INTERVAL HISTORY: This is a 81-year-old male with acute gallstone pancreatitis. Patient sitting up the bed appears tired with at the bedside, remains nothing by mouth, ambulating in the hallways ,had a bowel movement. QUESTIONS answered to patient and family's satisfaction. REVIEW OF SYSTEMS: Done for constitutional ,cardiovascular, GI, pulmonary with relevant findings as above. CURRENT MEDICATIONS Ertapenem, morphine. PHYSICAL EXAM: VITAL SIGNS: Temperature. 97.3, pulse 72 respirations 20 blood pressure 101/57, oxygen saturation 90% on room air GENERAL APPEARANCE. Lying in bed, not in distress. EYES: Pupils equal. Conjunctiva normal. NECK: JVD not raised. Mass not palpable. RESPIRATORY: Respiratory effort normal. Lungs clear to auscultation. CARDIOVASCULAR: First and second sounds normal. No edema. ABDOMEN: Soft. Minimal epigastric tenderness ,Liver and spleen not palpable. No tenderness. No mass palpable. PSYCHIATRY: Alert and oriented x3. Mood and affect normal. INVESTIGATIONS: AST 181, ALTs 319, amylase 355 lipase 4441 ASSESSMENT: Acute gallstone pancreatitis, worsening Acute obstructive hepatitis. History of oral cancer with surgery. Chronic mild dysphagia, stable. PLAN: Surgery plan once his liver enzymes and pancreatic enzymes are improved, we'll continue current medication and treatment plan. We will follow closely. PROFESSOR OF ENVIRONMENTAL STUDIES statement: Patient was seen and examined by nurse practitioner Barbie Norton in all elements of the case discussed with attending is Dr. Velez
--- NOTE | 2017-04-27 23:46 | P.PN ---
Subjective Principal diagnosis: Gallstone pancreatitis The patient is a 81-year-old male well known to me with history of oropharyngeal cancer. He reported acute onset epigastric abdominal pain with moderately elevated liver enzymes as well as pancreatic enzymes. Ultrasound is consistent multiple gallstones. He reports being completely nothing by mouth yesterday. He had ACUTE onset recurrent epigastric abdominal pain while nothing by mouth status. His pancreatic enzymes is now worsened as a result. Given his high surgical risks, surgical intervention is being investigated. He reports persistent pressure of the epigastrium. His is at bedside. Objective - Vital Signs Vital signs: Vital Signs Temp 98.1 F 04/27/17 23:00 Pulse 92 04/27/17 23:00 Resp 20 04/27/17 23:00 BP 108/60 04/27/17 23:00 Pulse Ox 94 L 04/27/17 23:00 Intake & Output 04/27/17 04/27/17 04/28/17 06:59 18:59 06:59 Intake Total 700 Balance 700 Intake: Oral 700 Other: # Voids 1 1 - Exam GENERAL: Well developed and in no acute distress. Pleasant. HEENT: No sclera icterus. Extraocular movements grossly intact. Moist buccal mucosa. Head is atraumatic, normocephalic. Hears conversational speech. No nasal drainage. NECK: Firm subcutaneous tissue along the submental area with radiation changes along the neck. CHEST: Non-labored respirations and equal bilateral excursions. CARDIOVASCULAR: Regular rate and rhythm. Palpable 2+ radial pulses. ABDOMEN: Soft, tender along the epigastrium. MUSCULOSKELETAL: No clubbing, cyanosis or edema. NEUROLOGIC: No focal or lateralizing signs. PSYCH: Appropriate affect. Alert and oriented to person, place and time. - Labs CBC & Chem 7: 04/25/17 23:40 04/27/17 07:08 Labs: Abnormal Lab Results - Last 24 Hours (Table) 04/27/17 Range/Units 07:08 Creatinine 0.65 L (0.66-1.25) mg/dL AST 181 H (17-59) U/L ALT 319 H (21-72) U/L Total Protein 6.1 L (6.3-8.2) g/dL Albumin 3.2 L (3.5-5.0) g/dL Amylase 355 H* (30-110) U/L Lipase 4441 H (23-300) U/L Assessment and Plan (1) Acute pancreatitis Status: Acute (2) Gallstone pancreatitis Status: Acute (3) Cancer of base of tongue Status: Acute (4) Fever of unknown origin (FUO) Status: Acute (5) History of throat cancer Status: Acute (6) H/O esophagectomy Status: Chronic (7) H/O prostatectomy Status: Chronic Plan: 1. Recommend CT of the abdomen and pelvis as his abdominal pain has recurred and his pancreatic enzyme has increased. Recommend evaluation for increased pancreatic inflammation. 2. He poses high surgical risks including history of difficult intubation. Recommend surgical intervention preferably during the work week where he may have full OR staff available. 3. As he has had robotic surgery before may also benefit from a robotic cholecystectomy once pancreatic enzymes improve. 4. I have answered the patient's questions in detail including with his at bedside.
[2017-04-28] MEDS: MORPHINE SULFATE 4 MG/ML SYRINGE IV PRN (02:19)
[2017-04-28] MEDS: SODIUM CHLORIDE 0.9% 1,000 ML IV SCH ×2 (06:12→19:03)
[2017-04-28 07:57] LABS: Basophils % (A) 0 %; CH 32.5; CHCM 32.9; Eosinophils % (A) 0 %; HCT 34.5 % (39.0-53.0); HDW 2.18; HGB 11.1 gm/dL (13.0-17.5); Luc # (Auto) 0.09; Luc % (Auto) 2; Lymphocytes # (A) 0.5 k/uL (1.0-4.8); Lymphocytes % (A) 11 %; MCH 32.1 pg (25.0-35.0); MCHC 32.3 g/dL (31.0-37.0); MCV 99.2 fL (80.0-100.0); Mean Platelet Volume 7.3; Monocytes # (A) 0.5 k/uL (0-1.0); Monocytes % (A) 11 %; Neutrophils # (A) 3.2 k/uL (1.3-7.7); Neutrophils % (A) 75 %; RBC 3.47 m/uL (4.30-5.90); RDW 13.4 % (11.5-15.5); WBC 4.3 k/uL (3.8-10.6); WBC (Perox) 4.65
[2017-04-28 09:16] LABS: ALT 318 U/L (21-72); AST 170 U/L (17-59); Alkaline Phosphatase 215 U/L (38-126); Anion Gap 8 mmol/L; Blood Urea Nitrogen 14 mg/dL (9-20); Calcium 9.5 mg/dL (8.4-10.2); Carbon Dioxide 29 mmol/L (22-30); Chloride 103 mmol/L (98-107); Glucose 112 mg/dL (74-99); Non-African American GFR(MDRD) >60 (>60 ml/min/1.73 sqM); Potassium 4.1 mmol/L (3.5-5.1); Sodium 140 mmol/L (137-145); Total Bilirubin 2.4 mg/dL (0.2-1.3); Total Protein 6.5 g/dL (6.3-8.2)
[2017-04-28 09:37] LABS: Amylase 1348 U/L (30-110)
--- NOTE | 2017-04-28 12:46 | PN ---
DATE OF SERVICE: 04/27/2017 ATTENDING NOTE: This patient was seen and examined by me earlier today. I reviewed the note of my nurse practitioner, Ms. Norton. Discussed and reviewed. Additional findings below. Patient presented with acute gallstone pancreatitis. Still having abdominal pain. Seen by General Surgery. Patient is n.p.o. is at the bedside. On examination, temperature 98, pulse 70, respirations 20, blood pressure 117/61, pulse ox 97% on room air. ABDOMEN: Epigastric tenderness. No guarding or rigidity. INVESTIGATIONS: Amylase 355, lipase 4441. AST 181, ALT 319. ASSESSMENT: 1. Acute gallstone pancreatitis, slow to respond. 2. Acute obstructive hepatitis. 3. History of oral cancer with surgery. 4. Chronic mild dysphagia. PLAN: Continue with IV fluids. Keep the patient n.p.o. Follow closely with surgery. Repeat labs. Care was discussed with the patient.
--- NOTE | 2017-04-28 16:14 | P.PN ---
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 May [address] Estrada and was sent to Dr. Dale for lymph node enlargement. He underwent a PET scan followed by biopsy done by Dr. Dale and also needle biopsy was done and both resulted cancer. Patient was sent to [facility] head and neck surgery team in [place]. Twenty lymph nodes were removed and 3 were cancerous. He started chemotherapy and radiation therapy which she completed in August 2016. He was on 5-fluorouracil and carboplatin. In September 2016 he developed a swollen tender red area to the left side of his neck and he had a needle biopsy and CAT scan with contrast at [facility] showed no solid mass but fluid collection in the area. Patient was put on antibiotics and subsequently ended up at [facility] due to fevers. He was admitted to the hospital and seen by ID service at that time. During his hospitalization he did have a PEG tube placed he was on IV antibiotics and transitioned to Augmentin at the time of his discharge. Patient states he oropeza and [place] and while there this winter he had the PEG tube and his port removed. He has been taking all nourishment orally and is currently taking boost as a supplement. He states he has gained 10 pounds but his appetite is never very good and he just forces himself to eat. 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 During his last admission he subsequently had the onset of fever and chills. He was found evidence of a significant cellulitis of his neck. With antibiotic therapy and massaging the chronic lymphedema to the tissue he had improvement. He has completed his course of oral antibiotic therapy. Now presents to Hospital significant abdominal pain. Imaging studies reveal evidence of acute cholecystitis and pancreatitis. He is being followed by general surgery with plans for elective cholecystitis in the near future because of his symptoms. Was evidence of leukocytosis and ID consult was requested. Patient is feeling much better today he relates about 4:00 this morning he started to have some resolution of his bloating abdominal pain. Nystatin much better since. Much more comfortable this afternoon. No other new complaints. Objective - Vital Signs Vital signs: Vital Signs Temp 98.9 F 06/18/17 07:00 Pulse 78 04/28/17 07:00 Resp 19 04/28/17 08:00 BP 109/69 04/28/17 07:00 Pulse Ox 94 L 04/28/17 07:00 Intake & Output 04/27/17 04/28/17 04/28/17 18:59 06:59 18:59 Intake Total 0 Balance 0 Intake: Oral 0 Other: # Voids 1 2 - Exam Gen: This is a 81-year-old male. He is sitting up in bed and appears to be in no acute distress. He is currently eating his breakfast and does not show any signs of aspiration or coughing. HEENT: Head is atraumatic, normocephalic. Pupils equal, round. Sclerae is anicteric. Conjunctiva pink. Mucous members of the mouth are somewhat dry. No thrush noted. NECK: Supple. No JVD. No lymphadenopathy. No thyromegaly. Healed scar to the left side of his neck. Swelling and erythema to the left side of his neck is resolved. The woody nature of his tissue is without change LUNGS: Clear to auscultation. No wheezes or rhonchi. No intercostal retractions. HEART: Regular rate and rhythm. No murmur. ABDOMEN: Soft. Some bowel sounds are heard. Has distinct tenderness in the midepigastrium. No bruising to the bowel wall is seen. No flank tenderness. Does not have rigidity or chandana guarding or rebound. Abdomen though is quite tender. EXTREMITIES: No pedal edema. No calf tenderness. Dorsalis pedis +2 bilaterally. NEUROLOGICAL: Patient is awake, alert and oriented x3. Patient has no acute gross focal sensory motor deficits. - Labs CBC & Chem 7: 04/28/17 07:35 04/28/17 07:35 Labs: Abnormal Lab Results - Last 24 Hours (Table) 04/28/17 04/28/17 Range/Units 07:35 07:35 RBC 3.47 L (4.30-5.90) m/uL Hgb 11.1 L (13.0-17.5) gm/dL Hct 34.5 L (39.0-53.0) % Plt Count 138 L (150-450) k/uL Lymphocytes # 0.5 L (1.0-4.8) k/uL Glucose 112 H (74-99) mg/dL Total Bilirubin 2.4 H (0.2-1.3) mg/dL AST 170 H (17-59) U/L ALT 318 H (21-72) U/L Alkaline Phosphatase 215 H (38-126) U/L Albumin 3.4 L (3.5-5.0) g/dL Amylase 1348 H* (30-110) U/L Lipase 5437 H (23-300) U/L Laboratory Results WBC 4.3 k/uL (3.8-10.6) 04/28/17 07:35 RBC 3.47 m/uL (4.30-5.90) L 04/28/17 07:35 Hgb 11.1 gm/dL (13.0-17.5) L 04/28/17 07:35 Hct 34.5 % (39.0-53.0) L 04/28/17 07:35 MCV 99.2 fL (80.0-100.0) 04/28/17 07:35 MCH 32.1 pg (25.0-35.0) 04/28/17 07:35 MCHC 32.3 g/dL (31.0-37.0) 04/28/17 07:35 RDW 13.4 % (11.5-15.5) 04/28/17 07:35 Plt Count 138 k/uL (150-450) L 04/28/17 07:35 Neutrophils % 75 % 04/28/17 07:35 Lymphocytes % 11 % 04/28/17 07:35 Monocytes % 11 % 04/28/17 07:35 Eosinophils % 0 % 04/28/17 07:35 Basophils % 0 % 04/28/17 07:35 Neutrophils # 3.2 k/uL (1.3-7.7) 04/28/17 07:35 Lymphocytes # 0.5 k/uL (1.0-4.8) L 04/28/17 07:35 Monocytes # 0.5 k/uL (0-1.0) 04/28/17 07:35 Eosinophils # 0.0 k/uL (0-0.7) 04/28/17 07:35 Basophils # 0.0 k/uL (0-0.2) 04/28/17 07:35 PT 10.7 sec (9.0-12.0) 04/25/17 23:40 INR 1.1 (<1.1) 04/25/17 23:40 APTT 23.0 sec (22.0-30.0) 04/25/17 23:40 Sodium 140 mmol/L (137-145) 04/28/17 07:35 Potassium 4.1 mmol/L (3.5-5.1) 04/28/17 07:35 Chloride 103 mmol/L (98-107) 04/28/17 07:35 Carbon Dioxide 29 mmol/L (22-30) 04/28/17 07:35 Anion Gap 8 mmol/L 04/28/17 07:35 BUN 14 mg/dL (9-20) 04/28/17 07:35 Creatinine 0.70 mg/dL (0.66-1.25) 04/28/17 07:35 Est GFR (MDRD) Af Amer >60 (>60 ml/min/1.73 sqM) 04/28/17 07:35 Est GFR (MDRD) Non-Af >60 (>60 ml/min/1.73 sqM) 04/28/17 07:35 Glucose 112 mg/dL (74-99) H 04/28/17 07:35 Calcium 9.5 mg/dL (8.4-10.2) 04/28/17 07:35 Magnesium 1.7 mg/dL (1.6-2.3) 04/25/17 23:40 Total Bilirubin 2.4 mg/dL (0.2-1.3) H 04/28/17 07:35 AST 170 U/L (17-59) H 04/28/17 07:35 ALT 318 U/L (21-72) H 04/28/17 07:35 Alkaline Phosphatase 215 U/L (38-126) H 04/28/17 07:35 Total Creatine Kinase 52 U/L (55-170) L 04/25/17 23:40 CK-MB (CK-2) 0.8 ng/mL (0.0-2.4) 04/25/17 23:40 CK-MB (CK-2) Rel Index 1.5 04/25/17 23:40 Troponin I <0.012 ng/mL (0.000-0.034) 04/25/17 23:40 Total Protein 6.5 g/dL (6.3-8.2) 04/28/17 07:35 Albumin 3.4 g/dL (3.5-5.0) L 04/28/17 07:35 Amylase 1348 U/L (30-110) H* 04/28/17 07:35 Lipase 5437 U/L (23-300) H 04/28/17 07:35 Urine Color Yellow 04/27/17 10:00 Urine Appearance Clear (Clear) 04/27/17 10:00 Urine pH 5.0 (5.0-8.0) 04/27/17 10:00 Ur Specific [place] 1.008 (1.001-1.035) 04/27/17 10:00 Urine Protein Negative (Negative) 04/27/17 10:00 Urine Glucose (UA) Negative (Negative) 04/27/17 10:00 Urine Ketones Negative (Negative) 04/27/17 10:00 Urine Blood Negative (Negative) 04/27/17 10:00 Urine Nitrite Negative (Negative) 04/27/17 10:00 Urine Bilirubin Negative (Negative) 04/27/17 10:00 Urine Urobilinogen <2.0 mg/dL (<2.0) 04/27/17 10:00 Ur Leukocyte Esterase Negative (Negative) 04/27/17 10:00 Assessment and Plan (1) Gallstone pancreatitis Status: Acute (2) Fever Narrative/Plan: Pleasant 81-year-old male who has a history of head and neck cancer. Status post surgical intervention and radiation therapy. Recent stay at hospital revealed evidence of the extensive cellulitis to the left side of his neck. Fortunately has responded very well to a course of antibiotic therapy and is resolved at this time. Is now presenting to hospital with severe abdominal pain is now having evidence of gallstone pancreatitis and cholecystitis. He is developed a fever. It is prudent to initiate antibiotic therapy and ertapenem will be utilized for coverage of the gallbladder and sepsis related. Fortunately the jaw is doing very well. Surgery is following and likely will have an elective cholecystectomy, Saturday. Pain control is improved. Is not having significant leukocytosis, but review of his white cell counts reveal that he may not be able to mount of a response after his prior interventions. Status: Acute
[2017-04-28 16:19] LABS: ALT 275 U/L (21-72); AST 127 U/L (17-59); Alkaline Phosphatase 206 U/L (38-126); Anion Gap 9 mmol/L; Blood Urea Nitrogen 15 mg/dL (9-20); Carbon Dioxide 26 mmol/L (22-30); Chloride 104 mmol/L (98-107); Glucose 83 mg/dL (74-99); Non-African American GFR(MDRD) >60 (>60 ml/min/1.73 sqM); Sodium 139 mmol/L (137-145); Total Bilirubin 1.9 mg/dL (0.2-1.3); Total Protein 6.3 g/dL (6.3-8.2)
[2017-04-28 18:55] LABS: Amylase 958 U/L (30-110)
--- NOTE | 2017-04-28 19:41 | P.PN ---
Subjective Principal diagnosis: Gallstone pancreatitis The patient is a 81-year-old male who presented with acute epigastric abdominal pain with radiation to the back. Diagnostic imaging particular ultrasound demonstrated gallstones. His labs were consistent with acute pancreatitis. Since admission he has had a waxing and waning course. Last night, he had severe 10 out of 10 pain along the epigastrium. At the time of my evaluation, he reports that his epigastric pain is now resolved. Additionally, his laboratory results this morning demonstrated worsening pancreatitis including with elevated bilirubin. He has been maintained on nothing by mouth status. No recent fevers or chills. Infectious disease is also following regarding antibiotic management. Objective - Vital Signs Vital signs: Vital Signs Temp 98.9 F 04/28/17 07:00 Pulse 78 04/28/17 07:00 Resp 19 04/28/17 08:00 BP 109/69 04/28/17 07:00 Pulse Ox 94 L 04/28/17 07:00 Intake & Output 04/27/17 04/28/17 04/28/17 18:59 06:59 18:59 Intake Total 0 Balance 0 Intake: Oral 0 Other: # Voids 1 2 - Exam GENERAL: Well developed and in no acute distress. Pleasant. HEENT: No sclera icterus. Extraocular movements grossly intact. Moist buccal mucosa. Head is atraumatic, normocephalic. Hears conversational speech. No nasal drainage. NECK: Firm subcutaneous tissue along the submental area with radiation changes along the neck. CHEST: Non-labored respirations and equal bilateral excursions. CARDIOVASCULAR: Regular rate and rhythm. Palpable 2+ radial pulses. ABDOMEN: Soft, nontender along the epigastrium. No peritonitis. MUSCULOSKELETAL: No clubbing, cyanosis or edema. NEUROLOGIC: No focal or lateralizing signs. PSYCH: Appropriate affect. Alert and oriented to person, place and time. - Labs CBC & Chem 7: 04/28/17 07:35 04/28/17 15:27 Labs: Abnormal Lab Results - Last 24 Hours (Table) 04/28/17 04/28/17 Range/Units 07:35 07:35 RBC 3.47 L (4.30-5.90) m/uL Hgb 11.1 L (13.0-17.5) gm/dL Hct 34.5 L (39.0-53.0) % Plt Count 138 L (150-450) k/uL Lymphocytes # 0.5 L (1.0-4.8) k/uL Glucose 112 H (74-99) mg/dL Total Bilirubin 2.4 H (0.2-1.3) mg/dL AST 170 H (17-59) U/L ALT 318 H (21-72) U/L Alkaline Phosphatase 215 H (38-126) U/L Albumin 3.4 L (3.5-5.0) g/dL Amylase 1348 H* (30-110) U/L Lipase 5437 H (23-300) U/L - Imaging and Cardiology CT scan - abdomen: image reviewed CT scan - pelvis: image reviewed (I personally reviewed his CT of the abdomen and pelvis demonstrating diverticulosis including free fluid along the pelvis. No evidence of free air. No evidence of pseudocyst.) Assessment and Plan (1) Acute pancreatitis Status: Acute (2) Gallstone pancreatitis Status: Acute (3) Cancer of base of tongue Status: Acute (4) Fever of unknown origin (FUO) Status: Acute (5) History of throat cancer Status: Acute (6) H/O esophagectomy Status: Chronic (7) H/O prostatectomy Status: Chronic Plan: 1. With his finding on his ultrasound, multiple gallstones were found along the infundibulum and body of the gallbladder. I have recommended more urgent surgical intervention as he poses risk for additional attacks. 2. GI consultation was requested as choledocholithiasis can occur and has occurred estimated by his laboratory results. 3. Clinically, he reports his abdominal pain has improved. We'll proceed with surgical intervention tomorrow. However, should his total bilirubin increase again, then he will have an ERCP in lieu of a laparoscopic cholecystectomy. 4. Recommend repeat comprehensive metabolic panel. 5. I have personally discussed with the GI team the care plan including surgical intervention pending results of his pancreatic enzymes including liver enzymes. 6. Continue nothing by mouth status. 7. I've also recommended elevating the head of the bed over 30 tablets abdominal pain.
[2017-04-28] MEDS: ERTAPENEM 1 GM in SODIUM CHLORIDE 0.9% 50 ML IVPB SCH (21:23)
--- NOTE | 2017-04-28 22:44 | P.PN ---
Progress Note - Text DATE OF SERVICE: 04/28/2017 PRESENTING COMPLAINT: Acute abdominal pain INTERVAL HISTORY: This is a 81-year-old male with acute gallstone pancreatitis. Pain improved today Patient sitting up the bed appears tired with at the bedside, remains nothing by mouth, ambulating in the hallways ,had a bowel movement. QUESTIONS answered to patient and family's satisfaction. REVIEW OF SYSTEMS: Done for constitutional ,cardiovascular, GI, pulmonary with relevant findings as above. CURRENT MEDICATIONS Ertapenem, morphine. PHYSICAL EXAM: VITAL SIGNS: Temperature 98.9, pulse 78 respiratory rate 19 blood pressure 109/69 and oxygen saturation 94% on room air GENERAL APPEARANCE. Lying in bed, not in distress. EYES: Pupils equal. Conjunctiva normal. NECK: JVD not raised. Mass not palpable. RESPIRATORY: Respiratory effort normal. Lungs clear to auscultation. CARDIOVASCULAR: First and second sounds normal. No edema. ABDOMEN: Soft. Minimal epigastric tenderness ,Liver and spleen not palpable. No tenderness. No mass palpable. PSYCHIATRY: Alert and oriented x3. Mood and affect normal. INVESTIGATIONS: Hemoglobin 11.1, total bilirubin 2.4, AST 170, ALTs 318, alkaline phosphatase 215, amylase 1348, lipase 5437. ASSESSMENT: Acute gallstone pancreatitis, slow to respond Acute obstructive hepatitis. History of oral cancer with surgery. Chronic mild dysphagia, stable. PLAN: Surgery planned for tomorrow, however if his bilirubin increases he will have an ERCP instead of the lap cholecystectomy. ID continues to follow with ertapenem antibiotic therapy, GI consultation was also initiated concerns for choledocholithiasis. We'll continue to follow closely SENIOR IT BUSINESS ANALYST statement: Patient was seen and examined by nurse practitioner Barbie Norton in all elements of the case discussed with attending is Dr. Velez
[2017-04-29] MEDS: SODIUM CHLORIDE 0.9% 1,000 ML IV SCH ×3 (00:30→21:48)
--- NOTE | 2017-04-29 04:21 | P.CONS ---
History of Present Illness - Reason for Consult Consult date: 04/28/17 - History of Present Illness The patient is a 81-year-old male who was admitted to the hospital with abdominal pain, nausea and vomiting and elevated liver and pancreas enzymes. The patient was managed with the working diagnosis of acute pancreatitis possibly gallstone related. The patient had gradual improvement however he had a recurrence of his pain yesterday and his amylase which was normalizing increased and we are consulted to see him for consideration of ERCP. At the time of my visit today, he has already improved and feeling great. I discussed his case with Dr. Madison who will be considering proceeding with cholecystectomy depending on his course. The patient has history of head and neck cancer around 3 years ago involving the base of the stomach with local extension and involvement of lymph nodes for which she had surgery as well as radiation and chemotherapy. The patient required enteral nutritional support during the course of his treatment. Currently he takes by mouth spontaneously, however, it appears that he continues to have difficulty with solid food and he apparently tries to wash it down with ensure. Has lost weight in the past but has been improving. Other history includes history of prostate cancer several years back and history of hyperlipidemia. Review of Systems Constitutional: Denied fever, chills or unintentional weight loss Neurologic: No headaches, double vision or sensory or motor changes Cardiopulmonary: No chest pains, shortness of breath or palpitations Genitourinary: No hematuria, dysuria or frequency Gastrointestinal: See present illness above Endocrine: No diabetes or thyroid problems Hematologic: No anemia or bleeding tendency Skin: No rashes Musculoskeletal: No joint complaints or swelling Psychiatric: No anxiety or depression Past Medical History Past Medical History: Cancer, Hyperlipidemia Additional Past Medical History / Comment(s): prostate cancer(had surgery and radiation). 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 surgery on throat. 20 lymph nodes removed. chemo and radiation in may 2016 for 7 weeks, PEG tube placement and removal, port placement and removal Past Anesthesia/Blood Transfusion Reactions: No Reported Reaction Past Psychological History: No Psychological Hx Reported Smoking Status: Never smoker Past Alcohol Use History: None Reported Past Drug Use History: None Reported - Past Family History Father Family Medical History: Congestive Heart Failure (CHF) Mother Family Medical History: Cancer Additional Family Medical History / Comment(s): cervical cancer Brother(s) Additional Family Medical History / Comment(s): Leukemia Medications and Allergies Home Medications Medication Instructions Recorded Confirmed Type Cholecalciferol [Vitamin D3] 1,000 unit PO DAILY 04/04/17 04/26/17 History Multivitamins, Thera [Multivitamin 1 tab PO DAILY 04/04/17 04/26/17 History (formulary)] Phenylephrine HCl [Calvin-Synephrine] 1 spray EA NOSTRIL DAILY 04/04/17 04/26/17 History Allergies Allergy/AdvReac Type Severity Reaction Status Date / Time No Known Allergies Allergy Verified 04/25/17 23:15 Physical Exam Vitals: Vital Signs Temp Pulse Resp BP Pulse Ox 04/28/17 08:00 19 04/28/17 07:00 98.9 F 78 19 109/69 94 L 04/27/17 23:00 98.1 F 92 20 108/60 94 L 04/27/17 15:00 100.6 F H 90 22 121/72 96 Intake and Output 04/27/17 04/28/17 04/28/17 22:59 06:59 14:59 Intake Total 0 0 Balance 0 0 Intake: Oral 0 0 Other: # Voids 2 General: Appeared stated age very pleasant in no acute distress Head and neck: Normocephalic and atraumatic, conjunctivae pink and sclerae not icteric. No masses appreciated in the neck or any tracheal shifts Lungs: Appear to auscultation with no dullness to percussion Heart: Regular, no abnormal sounds, murmurs, gallops or friction rubs Abdomen: Soft, no masses or organomegalies. Bowel sounds present Extremities: No clubbing, cyanosis or edema Neurologic: Cranial nerves grossly intact, no gross sensory or motor abnormalities Results CBC & Chem 7: 04/28/17 07:35 04/28/17 15:27 Labs: Abnormal Lab Results - Last 24 Hours (Table) 04/28/17 04/28/17 Range/Units 07:35 07:35 RBC 3.47 L (4.30-5.90) m/uL Hgb 11.1 L (13.0-17.5) gm/dL Hct 34.5 L (39.0-53.0) % Plt Count 138 L (150-450) k/uL Lymphocytes # 0.5 L (1.0-4.8) k/uL Glucose 112 H (74-99) mg/dL Total Bilirubin 2.4 H (0.2-1.3) mg/dL AST 170 H (17-59) U/L ALT 318 H (21-72) U/L Alkaline Phosphatase 215 H (38-126) U/L Albumin 3.4 L (3.5-5.0) g/dL Amylase 1348 H* (30-110) U/L Lipase 5437 H (23-300) U/L Assessment and Plan Plan: This 81-year-old male presenting with picture of gallstone pancreatitis. He seems to be improving at this time and could Possibly passed a common bile duct stone despite absence of such findings on his imaging studies. If he continues to improve, I agree with the plan for cholecystectomy. An ERCP might be challenging in light of his dysphagia symptoms which could be indicative of strictures in his upper esophagus or other causes of 3 esophageal dysphagia following his neck surgeries and treatments. I discussed this with the patient and I indicated that I'll be following closely but that I have not scheduled an ERCP at this time.
[2017-04-29 08:09] LABS: Basophils % (A) 0 %; CH 32.7; CHCM 34.1; Eosinophils # (A) 0.1 k/uL (0-0.7); Eosinophils % (A) 2 %; HCT 33.3 % (39.0-53.0); HDW 2.36; HGB 11.4 gm/dL (13.0-17.5); Luc # (Auto) 0.11; Luc % (Auto) 3; Lymphocytes # (A) 0.6 k/uL (1.0-4.8); Lymphocytes % (A) 15 %; MCH 32.8 pg (25.0-35.0); MCHC 34.2 g/dL (31.0-37.0); MCV 95.9 fL (80.0-100.0); Monocytes # (A) 0.3 k/uL (0-1.0); Monocytes % (A) 7 %; Neutrophils % (A) 73 %; RBC 3.47 m/uL (4.30-5.90); WBC 4.2 k/uL (3.8-10.6)
[2017-04-29 08:30] LABS: Chloride 104 mmol/L (98-107); Glucose 79 mg/dL (74-99); Potassium 3.9 mmol/L (3.5-5.1); Total Protein 6.2 g/dL (6.3-8.2)
[2017-04-29 08:31] LABS: ALT 212 U/L (21-72); AST 72 U/L (17-59); Alkaline Phosphatase 181 U/L (38-126); Anion Gap 9 mmol/L; Blood Urea Nitrogen 18 mg/dL (9-20); Calcium 8.8 mg/dL (8.4-10.2); Carbon Dioxide 27 mmol/L (22-30); Non-African American GFR(MDRD) >60 (>60 ml/min/1.73 sqM); Sodium 140 mmol/L (137-145); Total Bilirubin 1.2 mg/dL (0.2-1.3)
--- NOTE | 2017-04-29 08:31 | PN ---
DATE OF SERVICE: 04/28/2017 PRESENTING COMPLAINT: Abdominal pain. ATTENDING NOTE: This patient was seen and examined by me earlier today. I reviewed the notes of my nurse practitioner, Ms. Norton. Discussed, reviewed and additional findings below. Patient admitted with acute gallstone pancreatitis. Patient's last episode of pain was yesterday. Doing better. at the bedside. N.p.o. Contemplating ERCP. On examination, afebrile. Blood pressure 109/69. ABDOMEN: Soft, nontender. PSYCH: Alert and oriented x3. INVESTIGATIONS: Bilirubin 1.9, AST 127, ALT 275, amylase 958, lipase 3921. ASSESSMENT: 1. Acute gallstone pancreatitis, slow to respond, but pain has been better. 2. Acute obstructive hepatitis. 3. History of oral cancer with surgery. 4. Chronic mild dysphagia. 5. Hyperbilirubinemia PLAN: Discussed with Dr. Goel. Looking at possible ERCP tomorrow. Care was discussed with the patient and .
[2017-04-29 08:40] LABS: Amylase 327 U/L (30-110)
--- NOTE | 2017-04-29 11:30 | P.PN ---
Subjective 81-year-old being seen and examined currently this morning the patient states epigastric pain has resolved. Currently resting in bed. Did update the patient on the plan of care. Patient's surgery is scheduled tomorrow at 10 AM for a laparoscopic robotic cholecystectomy for acute gallstone pancreatitis. The labs were reviewed there is a noted improvement white count 4.2. AST is 72 ALT 212 lipase is down to 1035 amylase 327 electrolytes within normal limits afebrile currently nothing by mouth with IV fluid for hydration Objective - Vital Signs Vital signs: Vital Signs Temp 97.6 F 04/29/17 07:00 Pulse 75 04/29/17 07:00 Resp 20 04/29/17 07:00 BP 120/73 04/29/17 07:00 Pulse Ox 95 04/29/17 07:00 Intake & Output 04/28/17 04/29/17 04/29/17 18:59 06:59 18:59 Other: Voiding Method Toilet Urinal # Voids 4 2 - Exam GENERAL APPEARANCE: 81-year-old male patient is alert, oriented 3, in no acute distress. VITAL SIGNS: Reviewed HEENT: Head is normocephalic and atraumatic. Pupils are equal and reactive. The nares are patent. Oropharynx is clear without lesions. NECK: Supple without lymphadenopathy. Traches midline. HEART: S1, S2. Regular rate and rhythm. Denying chest pain no murmur LUNGS: No crackles or wheezes are heard. On room air adequate air movement no conversational dyspnea noted ABDOMEN: Soft, nontender, nondistended with good bowel sounds. No peritoneal signs. No palpable organomegaly or masses. Denies any nausea vomiting states abdominal discomfort improved no stool EXTREMITIES: Normal skin color and turgor. No cyanosis, rash, ulceration, clubbing or edema. Radial pedal pulses are 2/4 bilaterally. NEUROLOGICAL: No focal deficits. Strength and sensation are grossly intact. - Labs CBC & Chem 7: 04/29/17 07:46 04/29/17 07:46 Labs: Abnormal Lab Results - Last 24 Hours (Table) 04/28/17 04/28/17 04/29/17 Range/Units 15:27 15:27 07:46 RBC 3.47 L (4.30-5.90) m/uL Hgb 11.4 L (13.0-17.5) gm/dL Hct 33.3 L (39.0-53.0) % Plt Count 129 L (150-450) k/uL Lymphocytes # 0.6 L (1.0-4.8) k/uL Creatinine 0.60 L (0.66-1.25) mg/dL Total Bilirubin 1.9 H (0.2-1.3) mg/dL AST 127 H (17-59) U/L ALT 275 H (21-72) U/L Alkaline Phosphatase 206 H (38-126) U/L Total Protein (6.3-8.2) g/dL Albumin 3.4 L (3.5-5.0) g/dL Amylase 958 H* (30-110) U/L Lipase 3921 H (23-300) U/L 04/29/17 Range/Units 07:46 RBC (4.30-5.90) m/uL Hgb (13.0-17.5) gm/dL Hct (39.0-53.0) % Plt Count (150-450) k/uL Lymphocytes # (1.0-4.8) k/uL Creatinine 0.62 L (0.66-1.25) mg/dL Total Bilirubin (0.2-1.3) mg/dL AST 72 H (17-59) U/L ALT 212 H (21-72) U/L Alkaline Phosphatase 181 H (38-126) U/L Total Protein 6.2 L (6.3-8.2) g/dL Albumin 3.2 L (3.5-5.0) g/dL Amylase 327 H* (30-110) U/L Lipase 1035 H (23-300) U/L Assessment and Plan Plan: Impression Assessment and Plan (1) Acute pancreatitis Status: Acute (2) Gallstone pancreatitis Status: Acute (3) Cancer of base of tongue Status: Acute (4) Fever of unknown origin (FUO) Status: Acute (5) History of throat cancer Status: Acute (6) H/O esophagectomy Status: Chronic (7) H/O prostatectomy Patient is scheduled tomorrow at 10 AM on April 30 for laparoscopic cholecystectomy per Dr. Goldberg Continue to monitor labs Reinforce elevating the head of the bed 30 degree The above dictated assessment and findings were discussed with dr Goldberg Impression and the plan of care have been dictated as directed. Linda Haji nurse practitioner acting as a scribe for Dr. Goldberg
[2017-04-29] MEDS: ERTAPENEM 1 GM in SODIUM CHLORIDE 0.9% 50 ML IVPB SCH (21:47)
--- NOTE | 2017-04-29 23:30 | P.PN ---
Progress Note - Text DATE OF SERVICE: 04/29/2017 PRESENTING COMPLAINT: Acute abdominal pain INTERVAL HISTORY: This is a 81-year-old male with acute gallstone pancreatitis. Pain improved today Patient sitting up the bed appears tired with at the bedside, remains nothing by mouth, ambulating in the hallways ,had a bowel movement.. Scheduled for laparoscopic robotic cholecystectomy for acute gallstone pancreatitis in the morning at 10 AM. QUESTIONS answered to patient and family' s satisfaction. REVIEW OF SYSTEMS: Done for constitutional ,cardiovascular, GI, pulmonary with relevant findings as above. CURRENT MEDICATIONS Ertapenem, morphine. PHYSICAL EXAM: VITAL SIGNS: Temperature 97.6, pulse 75, respiratory rate 20, blood pressure 120/73, oxygen saturation 95% on room air. GENERAL APPEARANCE. Lying in bed, not in distress. EYES: Pupils equal. Conjunctiva normal. NECK: JVD not raised. Mass not palpable. RESPIRATORY: Respiratory effort normal. Lungs clear to auscultation. CARDIOVASCULAR: First and second sounds normal. No edema. ABDOMEN: Soft. Minimal epigastric tenderness ,Liver and spleen not palpable. No tenderness. No mass palpable. PSYCHIATRY: Alert and oriented x3. Mood and affect normal. INVESTIGATIONS: . Hemoglobin 11.4, total bilirubin 1.2 AST 72 ALTs 212 alkaline phosphatase 181 amylase 327, lipase 1035 ASSESSMENT: Acute gallstone pancreatitis, slow to respond, pain is better, scheduled for surgery in the morning. Acute obstructive hepatitis. History of oral cancer with surgery. Chronic mild dysphagia, stable. Hyperbilirubinemia PLAN: Surgery planned for tomorrow, . ID continues to follow with ertapenem antibiotic therapy, GI consultation was also initiated concerns for choledocholithiasis. Plan of care discussed with patient and at the bedside. We'll continue to follow closely DIGITAL STRATEGY MANAGER statement: Patient was seen and examined by nurse practitioner Barbie Norton in all elements of the case discussed with attending is Dr. Velez
[2017-04-30] MEDS: SODIUM CHLORIDE 0.9% 1,000 ML IV SCH ×2 (06:53→15:36)
--- NOTE | 2017-04-30 07:55 | P.PN ---
Progress Note - Text Patient seen and evaluated. He denies any epigastric pain or abdominal pain today. Plan for robotic-assisted laparoscopic cholecystectomy tomorrow.
--- NOTE | 2017-04-30 07:57 | P.HPADDEND ---
H&P Addendum H&P Addendum Date: 04/30/17 Patient presented with gallstone pancreatitis including transient choledocholithiasis. Ultrasound consistent multiple gallstones. Liver enzymes and pancreatic enzymes improving. Abdominal pain improved. We'll proceed robotic-assisted laparoscopic cholecystectomy.
[2017-04-30 08:39] LABS: Basophils % (A) 1 %; CH 33.1; CHCM 34.4; Eosinophils # (A) 0.1 k/uL (0-0.7); Eosinophils % (A) 4 %; HCT 31.9 % (39.0-53.0); HDW 2.42; HGB 10.7 gm/dL (13.0-17.5); Luc % (Auto) 4; Lymphocytes # (A) 0.5 k/uL (1.0-4.8); Lymphocytes % (A) 18 %; MCH 32.4 pg (25.0-35.0); MCHC 33.6 g/dL (31.0-37.0); MCV 96.5 fL (80.0-100.0); Mean Platelet Volume 6.8; Monocytes # (A) 0.3 k/uL (0-1.0); Monocytes % (A) 9 %; Neutrophils # (A) 1.8 k/uL (1.3-7.7); Neutrophils % (A) 65 %; RDW 13.2 % (11.5-15.5); WBC 2.8 k/uL (3.8-10.6); WBC (Perox) 3.05
[2017-04-30 08:58] LABS: ALT 159 U/L (21-72); AST 41 U/L (17-59); Alkaline Phosphatase 157 U/L (38-126); Amylase 128 U/L (30-110); Anion Gap 11 mmol/L; Blood Urea Nitrogen 18 mg/dL (9-20); Calcium 8.4 mg/dL (8.4-10.2); Carbon Dioxide 24 mmol/L (22-30); Chloride 104 mmol/L (98-107); Glucose 69 mg/dL (74-99); Non-African American GFR(MDRD) >60 (>60 ml/min/1.73 sqM); Potassium 3.5 mmol/L (3.5-5.1); Sodium 139 mmol/L (137-145); Total Protein 6.2 g/dL (6.3-8.2)
[2017-04-30] MEDS ORDERED: IV FLUID CONTINUATION 1,000 ML IV ONE (10:40)
[2017-04-30] MEDS ORDERED: LACTATED RINGERS 1,000 ML IV ONE (11:00)
[2017-04-30] MEDS ORDERED: LIDOCAINE 1% 20 ML VIAL (10MG/ML) FOR IV START INTRADERMA ONE (11:09)
[2017-04-30] MEDS ORDERED: DEXAMETHASONE SOD PHOSPHATE 10 MG/ML 1 ML VIAL IV ONE (11:10)
[2017-04-30] MEDS ORDERED: ONDANSETRON 4 MG/2 ML VIAL IVP ONE (11:11)
[2017-04-30] MEDS ORDERED: BUPIVACAIN-EPI 0.5%-1:200,000 30 ML VIAL SQ ONE ×2 (11:12→13:59)
[2017-04-30] MEDS ORDERED: LIDOCAINE 4% (PF) 5 ML AMP IH ONE (11:12)
[2017-04-30] MEDS ORDERED: PROPOFOL 10 MG/ML 20 ML VIAL IV ONE (11:28)
[2017-04-30] MEDS ORDERED: fentaNYL (PF) 50 MCG/ML 2 ML AMP ONE (11:28)
[2017-04-30] MEDS ORDERED: GLYCOPYRROLATE 0.2 MG/ML 2 ML VIAL ONE (11:28)
[2017-04-30] MEDS ORDERED: MIDAZOLAM 2 MG/2 ML VIAL ONE (11:28)
[2017-04-30] MEDS ORDERED: SUCCINYLCHOLINE CHLORIDE 100 MG/5 ML SYR IV ONE (11:28)
[2017-04-30] MEDS ORDERED: ePHEDrine 50 MG/ML 1 ML AMP ONE ×2 (11:28)
[2017-04-30] MEDS ORDERED: ROCURONIUM BROMIDE 10 MG/ML 10 ML VIAL IV ONE (11:28)
[2017-04-30] MEDS ORDERED: LIDOCAINE 1% INJ 10MG/ML (20 ML MDV) ONE (11:28)
[2017-04-30] MEDS ORDERED: ceFAZolin 2 GM in SODIUM CHLORIDE 0.9% 100 ML IVPB ONE (12:00)
[2017-04-30] MEDS ORDERED: HEPARIN SODIUM,PORCINE 5,000 UNIT/ML 1 ML VIAL SQ ONE (12:00)
[2017-04-30] MEDS ORDERED: ACETAMINOPHEN IV (For NPO) 1,000 MG in EMPTY BAG 1 BAG IVPB ONE (12:00)
--- NOTE | 2017-04-30 14:06 | P.PCN ---
Date of Procedure: 04/30/17 Preoperative Diagnosis: Gallstone pancreatitis, acute pancreatitis, acute cholecystitis Postoperative Diagnosis: Same Procedure(s) Performed: Laparoscopic cholecystectomy, reduction of port site hernia Implants: Anesthesia: GETA, local Surgeon: Maryuri Goldberg Estimated Blood Loss (ml): 75 Pathology: other (Gallbladder) Condition: stable Disposition: floor Indications for Procedure: Operative Findings: Severe adhesions along the infundibulum including the cystic structures. CBD is dilated. Cystic duct similarly dilated. No palpable stones along the cystic duct. Severe thickening of gallbladder wall. Port site hernia identified along the epigastrium. Description of Procedure:
--- NOTE | 2017-04-30 15:12 | PN ---
DATE OF SERVICE: 04/29/2017 ATTENDING NOTE: This is patient seen and examined by me on 04/29/17. I reviewed the note of my nurse practitioner, Ms. Norton. Discussed, reviewed and additional findings as below. This patient presented with acute gallstone pancreatitis. Pain is better. Patient is n.p.o. On exam: ABDOMEN: Soft, nontender. PSYCH: Alert and oriented x3. INVESTIGATIONS: White count 4.2, hemoglobin 9.4, AST 72, ALT 212, amylase 327, lipase 1035. ASSESSMENT: 1. Acute gallstone pancreatitis, slow to respond, though numbers are coming down. 2. Acute obstructive hepatitis. 3. History of oral cancer with surgery. 4. Hyperbilirubinemia. PLAN: Discussed the care with the patient's . Patient is due for laparoscopic robotic cholecystectomy by Dr. Goldberg tomorrow morning. Medically stable to proceed. Patient may need intraoperative cholangiogram depending how the patient fares. That will be determined by Dr. Goldberg.
[2017-04-30] MEDS: ERTAPENEM 1 GM in SODIUM CHLORIDE 0.9% 50 ML IVPB SCH (21:01)
--- NOTE | 2017-04-30 21:39 | P.PN ---
Progress Note - Text DATE OF SERVICE: 04/30/2017 PRESENTING COMPLAINT: Acute abdominal pain INTERVAL HISTORY: This is a 81-year-old male with acute gallstone pancreatitis, now postop day 0 from laparoscopic cholecystectomy, reduction of port site hernia. Patient is sitting up in bed, appears comfortable, tolerating his clear liquid diet, no nausea vomiting. Pain is minimal. Has not been out of bed since surgery. REVIEW OF SYSTEMS: Done for constitutional ,cardiovascular, GI, pulmonary with relevant findings as above. CURRENT MEDICATIONS Ertapenem, morphine, Zofran PHYSICAL EXAM: VITAL SIGNS: Temperature 97.8, pulse 64, respiratory rate 16, blood pressure 112/65, oxygen saturation 97% on room air. GENERAL APPEARANCE. Sitting up in bed, appears comfortable. EYES: Pupils equal. Conjunctiva normal. NECK: JVD not raised. Mass not palpable. RESPIRATORY: Respiratory effort normal. Lungs clear to auscultation. CARDIOVASCULAR: First and second sounds normal. No edema. ABDOMEN: Soft. Minimal epigastric tenderness ,Liver and spleen not palpable. No tenderness. No mass palpable. PSYCHIATRY: Alert and oriented x3. Mood and affect normal. INVESTIGATIONS: White blood cell count 2.8, hemoglobin 10.7, total bilirubin 1.0 AST 41 ALTs 159 , alkaline phosphatase 157, amylase 128 lipase 755. ASSESSMENT: Acute gallstone pancreatitis, slow to respond, status post laparoscopic cholecystectomy. Acute obstructive hepatitis. History of oral cancer with surgery. Chronic mild dysphagia, stable. Hyperbilirubinemia PLAN: ID continues to follow with ertapenem antibiotic therapy, . Liver enzymes and amylase and lipase are much improved. If patient is able to continue to tolerate his diet, remained pain-free, labs continue to down trend and is cleared from surgical standpoint,patient may be able to go home tomorrow. We' ll continue to follow closely. DRAMA THERAPIST statement: Patient was seen and examined by nurse practitioner Barbie Norton in all elements of the case discussed with attending is Dr. Velez
--- NOTE | 2017-04-30 22:55 | P.PN ---
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 May [address] Estrada and was sent to Dr. Dale for lymph node enlargement. He underwent a PET scan followed by biopsy done by Dr. Dale and also needle biopsy was done and both resulted cancer. Patient was sent to [facility] head and neck surgery team in [place]. Twenty lymph nodes were removed and 3 were cancerous. He started chemotherapy and radiation therapy which she completed in August 2016. He was on 5-fluorouracil and carboplatin. In September 2016 he developed a swollen tender red area to the left side of his neck and he had a needle biopsy and CAT scan with contrast at [facility] showed no solid mass but fluid collection in the area. Patient was put on antibiotics and subsequently ended up at [facility] due to fevers. He was admitted to the hospital and seen by ID service at that time. During his hospitalization he did have a PEG tube placed he was on IV antibiotics and transitioned to Augmentin at the time of his discharge. Patient states he oropeza and [place] and while there this winter he had the PEG tube and his port removed. He has been taking all nourishment orally and is currently taking boost as a supplement. He states he has gained 10 pounds but his appetite is never very good and he just forces himself to eat. 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 During his last admission he subsequently had the onset of fever and chills. He was found evidence of a significant cellulitis of his neck. With antibiotic therapy and massaging the chronic lymphedema to the tissue he had improvement. He has completed his course of oral antibiotic therapy. Now presents to Hospital significant abdominal pain. Imaging studies reveal evidence of acute cholecystitis and pancreatitis. He is being followed by general surgery with plans for elective cholecystitis in the near future because of his symptoms. Was evidence of leukocytosis and ID consult was requested. Patient feeling better again today. His laparoscopic cholecystectomy has been performed. Is able to ingest some fluids. Feeling better. Looks forward to discharge. Objective - Vital Signs Vital signs: Vital Signs Temp 97.1 F L 04/30/17 15:00 Pulse 80 04/30/17 17:56 Resp 20 04/30/17 15:00 BP 120/75 04/30/17 17:56 Pulse Ox 96 04/30/17 15:00 Intake & Output 04/30/17 04/30/17 05/01/17 06:59 18:59 06:59 Intake Total 1455 320 Output Total 75 Balance 1380 320 Intake: IV 1455 Oral 320 Output: Estimated Blood Loss 75 Other: Voiding Method Toilet Urinal # Voids 1 1 - Exam Gen: This is a 81-year-old male. He is sitting up in bed and appears to be in no acute distress. He is currently eating his breakfast and does not show any signs of aspiration or coughing. HEENT: Head is atraumatic, normocephalic. Pupils equal, round. Sclerae is anicteric. Conjunctiva pink. Mucous members of the mouth are somewhat dry. No thrush noted. NECK: Supple. No JVD. No lymphadenopathy. No thyromegaly. Healed scar to the left side of his neck. Swelling and erythema to the left side of his neck is resolved. The woody nature of his tissue is without change LUNGS: Clear to auscultation. No wheezes or rhonchi. No intercostal retractions. HEART: Regular rate and rhythm. No murmur. ABDOMEN: Soft. Some bowel sounds are heard. Has much improved tenderness. No bruising to the bowel wall is seen. No flank tenderness. Does not have rigidity or chandana guarding or rebound. Abdomen though is with some postoperative tenderness EXTREMITIES: No pedal edema. No calf tenderness. Dorsalis pedis +2 bilaterally. NEUROLOGICAL: Patient is awake, alert and oriented x3. Patient has no acute gross focal sensory motor deficits. - Labs CBC & Chem 7: 04/30/17 07:51 04/30/17 07:55 Labs: Abnormal Lab Results - Last 24 Hours (Table) 04/30/17 04/30/17 Range/Units 07:51 07:55 WBC 2.8 L (3.8-10.6) k/uL RBC 3.30 L (4.30-5.90) m/uL Hgb 10.7 L (13.0-17.5) gm/dL Hct 31.9 L (39.0-53.0) % Plt Count 137 L (150-450) k/uL Lymphocytes # 0.5 L (1.0-4.8) k/uL Creatinine 0.55 L (0.66-1.25) mg/dL Glucose 69 L (74-99) mg/dL ALT 159 H (21-72) U/L Alkaline Phosphatase 157 H (38-126) U/L Total Protein 6.2 L (6.3-8.2) g/dL Albumin 3.2 L (3.5-5.0) g/dL Amylase 128 H (30-110) U/L Lipase 755 H (23-300) U/L Laboratory Results WBC 2.8 k/uL (3.8-10.6) L 04/30/17 07:51 RBC 3.30 m/uL (4.30-5.90) L 04/30/17 07:51 Hgb 10.7 gm/dL (13.0-17.5) L 04/30/17 07:51 Hct 31.9 % (39.0-53.0) L 04/30/17 07:51 MCV 96.5 fL (80.0-100.0) 04/30/17 07:51 MCH 32.4 pg (25.0-35.0) 04/30/17 07:51 MCHC 33.6 g/dL (31.0-37.0) 04/30/17 07:51 RDW 13.2 % (11.5-15.5) 04/30/17 07:51 Plt Count 137 k/uL (150-450) L 04/30/17 07:51 Neutrophils % 65 % 04/30/17 07:51 Lymphocytes % 18 % 04/30/17 07:51 Monocytes % 9 % 04/30/17 07:51 Eosinophils % 4 % 04/30/17 07:51 Basophils % 1 % 04/30/17 07:51 Neutrophils # 1.8 k/uL (1.3-7.7) 04/30/17 07:51 Lymphocytes # 0.5 k/uL (1.0-4.8) L 04/30/17 07:51 Monocytes # 0.3 k/uL (0-1.0) 04/30/17 07:51 Eosinophils # 0.1 k/uL (0-0.7) 04/30/17 07:51 Basophils # 0.0 k/uL (0-0.2) 04/30/17 07:51 PT 10.7 sec (9.0-12.0) 04/25/17 23:40 INR 1.1 (<1.1) 04/25/17 23:40 APTT 23.0 sec (22.0-30.0) 04/25/17 23:40 Sodium 139 mmol/L (137-145) 04/30/17 07:55 Potassium 3.5 mmol/L (3.5-5.1) 04/30/17 07:55 Chloride 104 mmol/L (98-107) 04/30/17 07:55 Carbon Dioxide 24 mmol/L (22-30) 04/30/17 07:55 Anion Gap 11 mmol/L 04/30/17 07:55 BUN 18 mg/dL (9-20) 04/30/17 07:55 Creatinine 0.55 mg/dL (0.66-1.25) L 04/30/17 07:55 Est GFR (MDRD) Af Amer >60 (>60 ml/min/1.73 sqM) 04/30/17 07:55 Est GFR (MDRD) Non-Af >60 (>60 ml/min/1.73 sqM) 04/30/17 07:55 Glucose 69 mg/dL (74-99) L 04/30/17 07:55 Calcium 8.4 mg/dL (8.4-10.2) 04/30/17 07:55 Magnesium 1.7 mg/dL (1.6-2.3) 04/25/17 23:40 Total Bilirubin 1.0 mg/dL (0.2-1.3) 04/30/17 07:55 AST 41 U/L (17-59) 04/30/17 07:55 ALT 159 U/L (21-72) H 04/30/17 07:55 Alkaline Phosphatase 157 U/L (38-126) H 04/30/17 07:55 Total Creatine Kinase 52 U/L (55-170) L 04/25/17 23:40 CK-MB (CK-2) 0.8 ng/mL (0.0-2.4) 04/25/17 23:40 CK-MB (CK-2) Rel Index 1.5 04/25/17 23:40 Troponin I <0.012 ng/mL (0.000-0.034) 04/25/17 23:40 Total Protein 6.2 g/dL (6.3-8.2) L 04/30/17 07:55 Albumin 3.2 g/dL (3.5-5.0) L 04/30/17 07:55 Amylase 128 U/L (30-110) H 04/30/17 07:55 Lipase 755 U/L (23-300) H 04/30/17 07:55 Urine Color Yellow 04/27/17 10:00 Urine Appearance Clear (Clear) 04/27/17 10:00 Urine pH 5.0 (5.0-8.0) 04/27/17 10:00 Ur Specific [place] 1.008 (1.001-1.035) 04/27/17 10:00 Urine Protein Negative (Negative) 04/27/17 10:00 Urine Glucose (UA) Negative (Negative) 04/27/17 10:00 Urine Ketones Negative (Negative) 04/27/17 10:00 Urine Blood Negative (Negative) 04/27/17 10:00 Urine Nitrite Negative (Negative) 04/27/17 10:00 Urine Bilirubin Negative (Negative) 04/27/17 10:00 Urine Urobilinogen <2.0 mg/dL (<2.0) 04/27/17 10:00 Ur Leukocyte Esterase Negative (Negative) 04/27/17 10:00 Assessment and Plan (1) Gallstone pancreatitis Status: Acute (2) Fever Narrative/Plan: Pleasant 81-year-old male who has a history of head and neck cancer. Status post surgical intervention and radiation therapy. Recent stay at hospital revealed evidence of the extensive cellulitis to the left side of his neck. Fortunately has responded very well to a course of antibiotic therapy and is resolved at this time. Is now presenting to hospital with severe abdominal pain is now having evidence of gallstone pancreatitis and cholecystitis. He is developed a fever. It is prudent to initiate antibiotic therapy and ertapenem will be utilized for coverage of the gallbladder and sepsis related. Fortunately the jaw is doing very well. Surgery is following and likely will have an elective cholecystectomy, Saturday. Pain control is improved. Patient improved today. Laparoscopic cholecystectomy has occurred and the patient is improving. Likely discharge home tomorrow. Status: Acute
[2017-05-01 01:24] VITALS: RESP 16
[2017-05-01] MEDS: SODIUM CHLORIDE 0.9% 1,000 ML IV SCH ×2 (03:43→07:42)
[2017-05-01] MEDS: MORPHINE SULFATE 4 MG/ML SYRINGE IV PRN (07:43)
[2017-05-01 07:51] VITALS: BP 110/71; PULSE 62; TEMP 98.7
[2017-05-01 08:38] LABS: ALT 142 U/L (21-72); AST 68 U/L (17-59); Alkaline Phosphatase 133 U/L (38-126); Amylase 77 U/L (30-110); Anion Gap 9 mmol/L; Blood Urea Nitrogen 16 mg/dL (9-20); Calcium 8.5 mg/dL (8.4-10.2); Carbon Dioxide 24 mmol/L (22-30); Chloride 106 mmol/L (98-107); Glucose 96 mg/dL (74-99); Non-African American GFR(MDRD) >60 (>60 ml/min/1.73 sqM); Potassium 4.1 mmol/L (3.5-5.1); Sodium 139 mmol/L (137-145); Total Bilirubin 0.7 mg/dL (0.2-1.3); Total Protein 5.9 g/dL (6.3-8.2)
--- NOTE | 2017-05-01 15:32 | P.PN ---
Subjective 81-year-old gentleman seen and examined has been up ambulating in the hallway. Patient denies any nausea vomiting. Patient states abdominal pain has significantly improved. Patient is postop on April 30 laparoscopic cholecystectomy with a reduction of port site hernia due to gallstone pancreatitis acute pancreatitis acute cholecystitis Objective - Vital Signs Vital signs: Vital Signs Temp 98.7 F 05/01/17 07:00 Pulse 62 05/01/17 08:00 Resp 16 05/01/17 08:00 BP 110/71 05/01/17 07:00 Pulse Ox 97 05/01/17 08:17 Intake & Output 04/30/17 05/01/17 05/01/17 18:59 06:59 18:59 Intake Total 6973 115 5675 Output Total 75 1150 Balance 1380 -730 1120 Weight 71.5 kg Intake: IV 1455 800 Sodium Chloride 0.9% 1, 800 000 ml @ 100 mls/hr IV . Q10H AARON Rx#:[id number] Oral 420 320 Output: Urine 1150 Estimated Blood Loss 75 Other: Voiding Method Toilet Toilet Urinal Urinal # Voids 1 - Exam GENERAL APPEARANCE: 81-year-old male patient is alert, oriented 3, in no acute distress. Been up ambulating in the hallway states is passing gas abdominal pain improved VITAL SIGNS: Reviewed HEENT: Head is normocephalic and atraumatic. Pupils are equal and reactive. The nares are patent. Oropharynx is clear without lesions. NECK: Supple without lymphadenopathy. Traches midline. HEART: S1, S2. Regular rate and rhythm. Denying chest pain no murmur LUNGS: No crackles or wheezes are heard. On room air adequate air movement no conversational dyspnea noted ABDOMEN: Soft, nontender, nondistended with good bowel sounds. No peritoneal signs. No palpable organomegaly or masses. Denies any nausea vomiting states abdominal discomfort improved surgical sites no redness EXTREMITIES: Normal skin color and turgor. No cyanosis, rash, ulceration, clubbing or edema. Radial pedal pulses are 2/4 bilaterally. NEUROLOGICAL: No focal deficits. Strength and sensation are grossly intact. - Labs CBC & Chem 7: 04/30/17 07:51 05/01/17 07:32 Labs: Abnormal Lab Results - Last 24 Hours (Table) 05/01/17 Range/Units 07:32 Creatinine 0.61 L (0.66-1.25) mg/dL AST 68 H (17-59) U/L ALT 142 H (21-72) U/L Alkaline Phosphatase 133 H (38-126) U/L Total Protein 5.9 L (6.3-8.2) g/dL Albumin 3.0 L (3.5-5.0) g/dL Lipase 454 H (23-300) U/L Assessment and Plan Plan: Impression Assessment and Plan (1) Acute pancreatitis Status: Acute (2) Gallstone pancreatitis Status: Acute (3) Cancer of base of tongue Status: Acute (4) Fever of unknown origin (FUO) Status: Acute (5) History of throat cancer Status: Acute (6) H/O esophagectomy Status: Chronic (7) H/O prostatectomy Patient is scheduled tomorrow at 10 AM on April 30 for laparoscopic cholecystectomy per Dr. Goldberg Continue to monitor labs Reinforce elevating the head of the bed 30 degree The above dictated assessment and findings were discussed with dr Goldberg Impression and the plan of care have been dictated as directed. Linda Haji nurse practitioner acting as a scribe for Dr. Goldberg
--- NOTE | 2017-05-01 18:06 | PN ---
DATE OF SERVICE: 04/30/2017 ATTENDING NOTE: This patient was seen and examined by me on 04/30/17. I reviewed the note of my nurse practitioner Ms. Norton, discussed and reviewed. Additional findings below. This is a patient who presented with acute gallstone pancreatitis; today underwent surgical intervention in terms of cholecystectomy. Lying in bed. Some pain is present. No drainage present. No nausea or vomiting. On examination, abdomen is soft, tender. Bowel sounds sluggish. PSYCH: Alert, oriented x3. CARDIOVASCULAR: First and second sounds normal. LUNGS: Clear. ASSESSMENT: Acute gallstone pancreatitis followed by cholecystectomy. PLAN: Care was discussed with the patient. Will follow.
--- NOTE | 2017-05-03 15:37 | DS ---
DATE OF ADMISSION: 04/26/2017 DATE OF DISCHARGE: 05/01/2017 FINAL DIAGNOSES: 1. Acute gallstone pancreatitis, status post laparoscopic cholecystectomy, improved. 2. Acute obstructive hepatitis. 3. History of oral cancer with surgery. 4. Chronic mild dysphagia, stable. 5. Hyperbilirubinemia. DISCHARGE DISPOSITION: The patient will be discharged in stable condition with a guarded prognosis. HISTORY OF PRESENT ILLNESS: This 81-year-old gentleman was admitted with features of acute gallstone pancreatitis. The patient had acute pancreatitis. The patient underwent laparoscopic cholecystectomy and reduction of port site hernia. The patient improved significantly. On exam, vitals are stable. CARDIOVASCULAR SYSTEM: S1, S2 muffled. ABDOMEN: Soft. NERVOUS SYSTEM: No focal deficit. DISCHARGE ADVICE AND MEDICATIONS: 1. Diet is cardiac. 2. Activity limited until followup. 3. Follow up with Dr. Copeland in one week. 4. Follow up with Dr. Goel and Dr. Goldberg as recommended. 5. Tylenol 650 q.6 p.r.n. 6. Vitamin D3 1000 daily. 7. Motrin 200 mg q.6 p.r.n. 8. Multivitamin 1 p.o. daily. 9. Phenylephrine hydrochloride 1 spray daily. Once again, the patient will be discharged in stable condition with guarded prognosis.
--- NOTE | 2017-05-13 18:05 | P.OP ---
Date of Procedure: 04/30/17 Preoperative Diagnosis: Postoperative Diagnosis: Procedure(s) Performed: Implants: Indications for Procedure: Operative Findings: Description of Procedure: SURGEON: JASMIN FITZPATRICK MD MANAGER ANALYTICAL: 1. Korey Espinal 2. Suzanne Holder PREOPERATIVE DIAGNOSES: 1. Acute pancreatitis. 2. Gallstone pancreatitis. 3. History of oropharyngeal cancer status post chemoradiation. 4. History of fever of unknown origin. 5. Epigastric abdominal pain. 6. Symptomatic gallstones. 7. Elevated liver enzymes secondary to gallstone pancreatitis. 8. Hyperlipidemia. 9. Unintentional weight loss secondary to chemoradiation and oropharyngeal cancer. POSTOPERATIVE DIAGNOSES: 1. Acute pancreatitis. 2. Gallstone pancreatitis. 3. History of oropharyngeal cancer status post chemoradiation. 4. History of fever of unknown origin. 5. Epigastric abdominal pain. 6. Symptomatic gallstones. 7. Elevated liver enzymes secondary to gallstone pancreatitis. 8. Hyperlipidemia. 9. Unintentional weight loss secondary to chemoradiation and oropharyngeal cancer. 10. Acute gangrenous cholecystitis. 11. Port site hernia, epigastrium. OPERATION: 1. Robotic-assisted laparoscopic cholecystectomy, multiport 2. Laparoscopic reduction of incarcerated port site hernia. ANESTHESIA: Gen. and local anesthetic. ESTIMATED BLOOD LOSS: 75 mL. SPECIMENS REMOVED: Gallbladder. COMPLICATIONS: None. OPERATIVE FINDINGS: 1. Severe adhesions along the infundibulum including the cystic structures. 2. CBD is dilated. 3. Cystic duct similarly dilated. 4. No palpable stones along the cystic duct. 5. Severe thickening of gallbladder wall. 6. Port site hernia identified along the epigastrium. INDICATIONS: The patient is a 81-year-old male who presents with initial elevated liver enzymes including acute pancreatitis secondary to gallstones. As his liver enzymes and pancreatic enzymes had improved, surgical intervention with a laparoscopic cholecystectomy was described at length including injury to the biliary tree, bleeding, infection, need for further surgery. Informed consent was obtained. Robotic assisted laparoscopic approach was described. Benefits and risks of the procedure including but not limited to bleeding, infection, injury to the biliary tree was described. Informed consent was obtained. DESCRIPTION OF PROCEDURE: Patient was brought to the operating room, placed in supine position. After general induction, the abdomen had been prepped and draped in standard sterile fashion. The robotic da Jonathon SI system was primed. After a timeout protocol was performed, the patient had been prepped and draped in standard sterile fashion. The robot was docked above the patient. The patient was repositioned in reverse Trendelenburg position. Please note prior to docking of the robot; however, a 5 mm 0 degrees laparoscopic trocar entry was performed along the left upper quadrant. Next, two 8 mm robotic ports were placed along the right upper abdomen. The camera 12-mm port was maintained along the epigastrium. Another 8 mm port was placed along the left upper abdominal wall after exchanging the 5 mm port. Please note that the ports were placed at least 10 to 15 cm away from the target anatomy of the gallbladder. Using a grasper for arm 3, a grasper for arm 2, including hook cautery for arm 1 , the robotic system was docked and primed as described. Instruments were interchanged by the diploma medical assistant including hook cautery, Bovie cautery, scissors and clip appliers. I had sat at the console. Adhesions were identified along the infundibulum of the gallbladder and addressed using hook cautery including blunt dissection with a long forceps grasper and vessel sealer. The gallbladder wall was severely thickened as well as dense adhesions were found along the cystic structures. Careful and meticulous dissection was performed to identify each structure including the cystic duct as well as the common bile duct. A short cystic duct was also confirmed. A meandering cystic artery was also identified. Extensive lysis of adhesions over 35-40 minutes was performed given the severity of edema and adhesions. A port site hernia along the epigastrium was also reduced. A robotic vessel sealer was also used to perform moderate amount of dissection. The gallbladder fundus was retracted over the dome of the liver. Initial attention was brought to the infundibulum which was gently retracted in the inferior lateral approach. Using a long forceps grasper, the cystic duct including the cystic artery was carefully skeletonized. Using a clip senior interactive developer 3 clips were placed proximally, and 2 clip was placed distally along the cystic duct and then divided with hook cautery. Again care was taken to avoid any injury to the biliary tree as the common bile duct was clearly visualized during this portion of dissection. Next, the cystic artery was clipped twice proximally, once distally and then cauterized the cut. Electro-Bovie cautery was used to remove the gallbladder from the hepatic fossa without decompression of the gallbladder. Hemostasis was checked and found to be adequate. The robot was undocked. I re-scrubbed into the case. Using a 10 mm Endo Catch bag via the 12 mm port, the specimen was removed from the abdominal cavity. The 12 mm port site was oversewn using 0 Vicryl including a Pablo Arora as well. All pneumoperitoneum instruments were evacuated from the abdominal cavity. The incisions were reapproximated using 4-0 Monocryl in an interrupted subcuticular fashion. Please note along the trocar sites, local anesthetic was placed as a field block prior to insertion of all instruments. Dermabond was applied to the skin. Optifoam was placed at the epigastric trocar site. At the end of the procedure needle, sponge, and instrument count had been verified correct by the surgical product sales consultant. The patient was transferred to postanesthesia care unit in stable condition.
== END 2017-05-01 15:28 | disposition home or self-care (01) | DRG 417 ==
LOC: EC 23:08 → 4MS4W 04-26 01:44
PROVIDERS: ADMIT Hospitalist; ATTEND Hospitalist
PROC: 0WQF4ZZ Repair Abdominal Wall, Percutaneous Endoscopic Approach (ICD-10-PCS; 2017-04-30)
PROC: 8E0W4CZ Robotic Assisted Procedure of Trunk Region, Percutaneous Endoscopic Approach (ICD-10-PCS; 2017-04-30)
PROC: 0FT44ZZ Resection of Gallbladder, Percutaneous Endoscopic Approach (ICD-10-PCS; principal; 2017-04-30 12:45)
DX: K80.01 Calculus of gallbladder with acute cholecystitis with obstruction (principal); K85.10 Biliary acute pancreatitis without necrosis or infection; K75.89 Other specified inflammatory liver diseases; R50.9 Fever, unspecified; E78.5 Hyperlipidemia, unspecified; R13.10 Dysphagia, unspecified; K43.2 Incisional hernia without obstruction or gangrene; Z85.01 Personal history of malignant neoplasm of esophagus; Z85.46 Personal history of malignant neoplasm of prostate; Z85.810 Personal history of malignant neoplasm of tongue; Z82.49 Family history of ischemic heart disease and other diseases of the circulatory system; Z80.6 Family history of leukemia
CPT/HCPCS: 36415; 74022; 74177; 76705; 80053; 81003; 82150; 82550; 82553; 83690; 83735; 84484; 85025; 85610; 85730; 88304; 93005; 96361; 96365; 96375; 99285

== ENCOUNTER → 2019-08-31 | Outpatient (CLI) | payer MEDICARE ==
[2019-08-31 10:44] LABS: Basophils % (A) 1 %; Eosinophils # (A) 0.1 k/uL (0-0.7); Eosinophils % (A) 2 %; HCT 43.3 % (39.0-53.0); HGB 14.5 gm/dL (13.0-17.5); Lymphocytes # (A) 1.2 k/uL (1.0-4.8); Lymphocytes % (A) 30 %; MCH 33.1 pg (25.0-35.0); MCHC 33.5 g/dL (31.0-37.0); MCV 98.9 fL (80.0-100.0); Mean Platelet Volume 6.1; Monocytes # (A) 0.3 k/uL (0-1.0); Monocytes % (A) 8 %; Neutrophils # (A) 2.3 k/uL (1.3-7.7); Neutrophils % (A) 57 %; Platelet Count 199 k/uL (150-450); RBC 4.38 m/uL (4.30-5.90); WBC 4.1 k/uL (3.8-10.6)
[2019-08-31 10:49] LABS: African American GFR (CKD) >90 (>60 ml/min/1.73 sqM); Anion Gap 8 mmol/L; Blood Urea Nitrogen 18 mg/dL (9-20); Calcium 9.7 mg/dL (8.4-10.2); Carbon Dioxide 32 mmol/L (22-30); Chloride 104 mmol/L (98-107); Glucose 98 mg/dL (74-99); Non-African American GFR(CKD) 89 (>60 ml/min/1.73 sqM); Potassium 4.5 mmol/L (3.5-5.1); Sodium 144 mmol/L (137-145)
--- NOTE | 2019-08-31 14:18 | CT ---
EXAMINATION TYPE: CT soft tissue neck w con DATE OF EXAM: 08/31/2019 COMPARISON: 04/05/2017 HISTORY: Throat cancer. CT DLP: 371 mGycm CONTRAST: Patient injected with 100 mL of Isovue M300. TECHNIQUE: Axial images at 3 mm thick sections. Reconstructed images in the coronal plane and sagitt al plane are reviewed. FINDINGS: Limited CT sections are obtained the lung apices. The lung apices appear clear. CT neck: The torus tubarius and fossa of Rosenmuller are normal. Machine Tool Operator spaces are normal. Para nasal sinuses and mastoid air cells are clear. Parotid glands appear normal and symmetrical. Submandibular glands, are normal. Parapharyngeal spac es are normal. No suspicious adenopathy is evident. The hypopharynx appears within normal limits. Vocal cord levels) at the time of the exam. Multiple surgical clips from radical neck dissection on t he left are evident. Thyroid is poorly visualized. Correlate with surgical history. Some lower cervical spine facet hypertrophy and endplate spurring is present. IMPRESSIONS: 1. No suspicious changes to suggest recurrent cancer. 2. Postsurgical changes within the left neck. 3. Degenerative changes lower cervical spine.
--- NOTE | 2019-08-31 15:07 | CT ---
EXAMINATION TYPE: CT ChestAbdPelvis w con DATE OF EXAM: 08/31/2019 INDICATION: Throat cancer. COMPARISON: 04/27/2017 CT abdomen and pelvis CT DLP: 1268.1 mGycm CONTRAST: Performed with Oral Contrast and with IV Contrast, patient injected with 100 mL of Isovue M300. TECHNIQUE: Axial images at 5 mm thick sections. Reconstructed images in the coronal plane. Delayed images through the kidneys. FINDINGS: CT CHEST: Portion of the thyroid visualized is normal. No suspicious lung nodules or focal infiltrates are present. No enlarged mediastinal or hilar adenopathy is evident. The ascending aorta diameter at the level of the main pulmonary artery is 2.3 cm. The main pulmonary artery diameter at the bifurcation is 2.4 cm. Moderate cardiac calcification is present. CT ABDOMEN: Liver: Normal Spleen: Normal Pancreas: Normal Adrenal glands: The adrenal glands are normal. Gallbladder: Surgically absent. Kidneys: No masses are evident. No hydronephrosis is present. No cysts are present. Delayed images were obtained through the kidneys, which remain unremarkable. Aorta: Normal Inferior vena cava: Normal. CT PELVIS: There is diffuse thickening of the cecum. Additional evaluation is recommended. Neoplasm is not exclu ded. Scattered diverticula are present without evidence of acute diverticulitis. There are loops of bowel which are incompletely distended or lack oral contrast limiting their evaluation. Appendix: Not visualized. No suspicious inflammatory changes evident Urinary bladder: Normal. Genitourinary structures: Surgical clips are present likely from prior prostatectomy. Osseous structures: No suspicious lytic or sclerotic lesions. IMPRESSIONS: 1. Thickening at the level of the cecum which is nonspecific. Neoplasm should be considered and treasure p is recommended. 2. Suspicious throat cancer metastasis is not identified.
== END | disposition home or self-care (01) ==
LOC: RADCTMAIN 10:01
PROVIDERS: ATTEND Otolaryngology
DX: K63.89 Other specified diseases of intestine (principal); Z85.818 Personal history of malignant neoplasm of other sites of lip, oral cavity, and pharynx; Z98.890 Other specified postprocedural states; C02.9 Malignant neoplasm of tongue, unspecified
CPT/HCPCS: 80048; 84443; 85025; 70491; 71260; 74177; 36415; Q9967 ×2

== ENCOUNTER 2020-05-10 08:16 | Day surgery (SDC) | payer MEDICARE, OTHER ==
[2020-05-09 09:29] VITALS: BMI 26.2
[~2020-05-10 08:16] MED LIST changes: -ACETAMINOPHEN IV (For NPO) 1,000 MG in EMPTY BAG 1 BAG IVPB ONE; -BUPIVACAINE LIPOSOME/PF 1.3% 20 ML, BUPIVACAIN-EPI 0.5%-1:200,000 25 ML, SODIUM CHLORID... MISCELLANE ONE; -HEPARIN SODIUM,PORCINE 5,000 UNIT/ML 1 ML VIAL SQ ONE; -HYDROmorphone 1 MG/ML 1 ML SYRINGE IVP PRN; -MIDAZOLAM 2 MG/2 ML VIAL IV PRN; -ONDANSETRON 4 MG/2 ML VIAL IVP ONE; -ceFAZolin 2 GM in SODIUM CHLORIDE 0.9% 100 ML IVPB ONE
[2020-05-10 08:36] VITALS: RESP 18; TEMP 97.8
[2020-05-10] MEDS ORDERED: LACTATED RINGERS 1,000 ML IV ONE (08:36)
[2020-05-10] MEDS ORDERED: LIDOCAINE 1% (10MG/ML) FOR IV START INTRADERMA ONE (08:36)
[2020-05-10] MEDS ORDERED: PROPOFOL 10 MG/ML 20 ML VIAL IV ONE (09:14)
--- NOTE | 2020-05-10 09:39 | P.PCN ---
Date of Procedure: 05/10/20 Description of Procedure: BRIEF HISTORY: Patient is an 84 -year-old male presenting for outpatient colonoscopy for evaluation of abnormal computed tomography scan abdomen. Reports a remote history of colonoscopy over 10 years ago. No change in bowel habits, blood per rectum or abdominal pain. PROCEDURE PERFORMED: Colonoscopy with polypectomy. PREOPERATIVE DIAGNOSIS: Abnormal computed tomography scan, last colonoscopy over 10 years ago. ESTIMATED BLOOD LOSS: Minimal. IV sedation per Anesthesia. PROCEDURE: After informed consent was obtained, the patient, was brought into the endoscopy unit. IV sedation was administered by Anesthesia under continuous monitoring. Digital rectal examination was normal. Initially the Olympus CF-190 flexible video colonoscope was then inserted in the rectum, gradually advanced into the cecum without any difficulty. Careful examination was performed as the scope was gradually being withdrawn. Ileocecal valve and the appendiceal orifice were visualized and appeared normal. Prep was excellent. Mucosa of the cecum, ascending colon, transverse colon, descending colon, sigmoid colon, and rectum appeared normal. 2 diminutive polyps measuring 1-2 mm in size removed from the cecum and ascending colon with cold forcep polypectomy. A few scattered diverticula in the sigmoid colon. Retroflexion was performed in the rectum and no lesions were seen, moderate internal hemorrhoids. The patient tolerated the procedure well. IMPRESSION: 2 diminutive polyps removed from the cecum and ascending colon with cold forceps. Mild sigmoid diverticulosis. Moderate internal hemorrhoids. RECOMMENDATIONS: Findings of this examination were discussed with the patient. Okay to resume diet. Okay to resume medications. Await pathology from polypectomy. Need for future colonoscopy would be based on development of symptoms or further abdominal imaging.
[2020-05-10 09:59] VITALS: BP 115/75; PULSE 69
== END 2020-05-10 10:12 | disposition home or self-care (01) ==
LOC: ORWHC2ENDO 08:16
PROVIDERS: ATTEND Internal Medicine
DX: D12.2 Benign neoplasm of ascending colon (principal); D12.0 Benign neoplasm of cecum; K57.30 Diverticulosis of large intestine without perforation or abscess without bleeding; K64.8 Other hemorrhoids; Z90.49 Acquired absence of other specified parts of digestive tract; Z98.890 Other specified postprocedural states; E07.9 Disorder of thyroid, unspecified; Z87.19 Personal history of other diseases of the digestive system; Z85.21 Personal history of malignant neoplasm of larynx; Z90.79 Acquired absence of other genital organ(s); Z79.890 Hormone replacement therapy; Z79.899 Other long term (current) drug therapy
CPT/HCPCS: 45380; 88305; J2704